=== PATIENT | female | born 1960 | race Caucasian/White ===

== ENCOUNTER 2020-10-09 09:00 | Outpatient (RCR) | payer OTHER, SELFPAY | END 2021-04-16 13:19 | disposition home or self-care (01) | LOC: HO.PT 09:00 | PROVIDERS: PCP Internal Medicine; Visit Provider Podiatrist | DX: M72.2 Plantar fascial fibromatosis (principal) | CPT/HCPCS: 97035; 97110; 97140; 97161; 97535 ==

== ENCOUNTER 2020-10-17 07:18 | Outpatient (REF) | payer OTHER, SELFPAY ==
--- NOTE | ~2020-10-17 | MR_ITS ---
EXAMINATION: MR ANKLE WITHOUT CONTRAST, LEFT CLINICAL INFORMATION: Stress fracture left calcaneus. Patient reports plantar fasciitis. COMPARISON: None TECHNIQUE: MRI of the left ankle was performed without contrast. FINDINGS: PLANTAR FASCIA: There is mild heterogeneity of the proximal plantar fascia over approximately 2 cm. There is mild edema in the surrounding soft tissues as well as at the calcaneal attachment. The findings are most compatible with plantar fasciitis and/or small areas of interstitial intrasubstance partial tearing but no measurable defect or plantar fascial retraction. See sagittal image 10 series 8. SUBCUTANEOUS SOFT TISSUES: Otherwise normal. MUSCLES AND TENDONS: Normal. NEUROVASCULAR STRUCTURES: Normal. LIGAMENTS: Normal. ARTICULAR CARTILAGE/MARROW: Articular cartilage normal. Mild edema in the calcaneal tuberosity at the plantar fascia attachment, as above. MR/MR ankle LT wo con IMPRESSION: Findings most compatible with mild plantar fasciitis/partial tearing of the plantar fascia with reactive edema in the surrounding soft tissues and bone. I do not see findings that would indicate stress fracture.
== END 2020-10-17 07:19 | disposition home or self-care (01) ==
LOC: HO.MRI 07:18
PROVIDERS: Visit Provider Podiatrist
DX: M84.375A Stress fracture, left foot, initial encounter for fracture (principal)
CPT/HCPCS: 73721

== ENCOUNTER 2021-02-26 08:02 | Outpatient (REF) | payer OTHER, SELFPAY ==
--- NOTE | ~2021-02-26 | XR_ITS ---
EXAMINATION: XR SHOULDER, RIGHT CLINICAL INFORMATION: Right shoulder pain. COMPARISON: None. TECHNIQUE: 3 views of the right shoulder. FINDINGS: There is no evidence of acute fracture or dislocation of the right shoulder. There is mild spurring about the inferior glenohumeral joint. No calcific tendinitis identified. No widening of the coracoclavicular space is seen. There is some mild superior subluxation of the humeral head which may be indicative of rotator cuff injury. XR/XR shoulder RT min 2V IMPRESSION: No evidence of acute fracture or calcific tendinitis. Mild degenerative change as described.
== END 2021-02-26 08:03 | disposition home or self-care (01) ==
LOC: HO.HOSX 08:02
PROVIDERS: Visit Provider Orthopaedic Surgery
DX: M25.511 Pain in right shoulder (principal); M75.41 Impingement syndrome of right shoulder
CPT/HCPCS: 73030

== ENCOUNTER 2021-04-16 09:00 | Outpatient (RCR) | payer OTHER, SELFPAY ==
--- NOTE | 2021-03-11 10:13 | MHC.PT.EP ---
[facility] [place] Office [place] Office [place] Office [address] Horace Dawn [address] [phone] F: [phone] F: [phone] F: [phone] F: [phone] Physical Therapy Plan of Care Date of Evaluation: Date of Surgery: Diagnosis: ROTATOR CUFF TENDONITIS Assessment: 60 YO FEMALE REF TO PT FOR Rt SHOULDER IMPINGEMENT- SHE IS RIGHT HAND DOMINANT- OBJECTIVE FINDINGS: LIMITED Rt SH AROM, DECR POSTURE, TIGHT ANT SH/ PECT, (+) IMPINGEMENT SIGN Rt, AND (+) PAIN Rt UPPER TRAP/ SCAP, ANT GH. FUNCTIONALLY, Pt IS GUARDED W REACHING POSTERIORLY OR OVERHEAD, SLEEPING IS DIFFICULT, LIMITED W DRIVING, AND LIFTING OBJECTS. SHE HAS BEEN AVOIDING HER EXERCISE ROUTINE. Pt WOULD BENEFIT FROM PT TO ADDRESS PAIN, IMPROVE POSTURE, EASE TISSUE TENSION, AND DEV A PROGR HEP TO JUNI. Frequency and Duration: The patient will be seen 2 x WK x 5 WKS Short Term Goals: Pt'S Rt SH PAIN DECR TO 2-3/10 W REG ADLs IN 2 WKS Pt DEMON INDEP SELF CORRECT POSTURE/ SIMUL BODY MECH IN 2 WKS Pt DEMON INCR AROM Rt SH IN 2 WKS Half-Way Goals: Pt INDEP W HEP AND SELF-SX MGMT TECHN IN 5 WKS Pt'S SPADI SCORE IMPROVED 10 POINTS (92/130 AT EVAL) IN 5 WKS Treatment Plan: Modalities to reduce pain, spasms and effusion. Manual therapy to restore motion and function. Therapeutic exercise to improve strength and flexibility. Neuromuscular re-education for posture and balance. Therapeutic activities to return to functional activities of daily living. Electronically signed by: Liliana Sandoval,PT Please sign and return to therapist. Thank you for your referral.
--- NOTE | 2021-05-31 07:17 | MHC.PT.DC ---
[facility] [place] Office [place] Office [place] Office [address] Horace Dawn [address] [phone] F: [phone] F: [phone] F: [phone] F: [phone] Physical Therapy Discharge Report Diagnosis: ROTATOR CUFF TENDONITIS Date of Surgery: Date of Evaluation: 03/11/21 Date of Discharge: 05/31/21 Treatments to Date: 10 Cancellations to Date: 2 No Shows to Date: Discharge Status: Improved Function Independent with HEP Recommend MD Follow-up Discharge Summary: Pt RECEIVED A FULL TRIAL OF IONTO- DUE TO PERSISTENT SXS, WE DISCUSSED PUTTING PT ON HOLD AND TO HAVE HER F/U W MD; SHE APPEARS TO HAVE RESIDUAL IMPINGEMENT/ POSTURAL SYNDROME INFLUENCING HER Rt SH W/O CONSISTENT RELIEF OF SXS AFTER SOFT TISSUE MOBILIZATION/ IASTM, THERAPEUTIC TAPING, POSTURAL ED AND EXER, POSTERIOR RC/ SCAP MM STABILIZATION AND STRENGTHENING. 60 YO FEMALE REF TO PT FOR Rt SHOULDER IMPINGEMENT- SHE IS RIGHT HAND DOMINANT- OBJECTIVE FINDINGS: LIMITED Rt SH AROM, DECR POSTURE, TIGHT ANT SH/ PECT, (+) IMPINGEMENT SIGN Rt, AND (+) PAIN Rt UPPER TRAP/ SCAP, ANT GH. FUNCTIONALLY, Pt IS GUARDED W REACHING POSTERIORLY OR OVERHEAD, SLEEPING IS DIFFICULT, LIMITED W DRIVING, AND LIFTING OBJECTS. SHE HAS BEEN AVOIDING HER EXERCISE ROUTINE. Pt WOULD BENEFIT FROM PT TO ADDRESS PAIN, IMPROVE POSTURE, EASE TISSUE TENSION, AND DEV A PROGR HEP TO JUNI. Electronically signed by: Liliana Sandoval,PT Please sign and return to therapist. Thank you for your referral.
== END 2021-05-31 07:19 | disposition home or self-care (01) ==
LOC: HO.PT 09:00
PROVIDERS: Visit Provider Orthopaedic Surgery
DX: M75.41 Impingement syndrome of right shoulder (principal)
CPT/HCPCS: 97033; 97110; 97140; 97161; 97530

== ENCOUNTER 2021-05-23 07:21 | Outpatient (REF) | payer OTHER, SELFPAY ==
--- NOTE | ~2021-05-23 | MR_ITS ---
EXAMINATION: MR SHOULDER WITHOUT CONTRAST, RIGHT CLINICAL INFORMATION: Right shoulder pain. Decreased range of motion. Pain with movement. Impingement syndrome. COMPARISON: Right shoulder radiographs dated 02/26/2021. TECHNIQUE: MRI of the shoulder without contrast was performed on a high-field scanner. FINDINGS: ROTATOR CUFF: Supraspinatus tendinosis with anterior bursal surface partial tearing measuring 0.4 cm in AP dimension. Mild subscapularis tendinosis. No muscle atrophy or fatty infiltration. BICEPS: Normal. CORACOACROMIAL ARCH: The undersurface of the acromion is curved with no subacromial spur. Mild acromioclavicular osteoarthritis. Mild fluid within the subacromial-subdeltoid bursa, consistent with minimal bursitis. LABRUM/CAPSULE: No displaced labral tear. Intact joint capsule. Attenuation of the coracoclavicular ligament with adjacent edema, consistent with a grade 2 sprain/partial tear. GLENOHUMERAL JOINT/MARROW: Humeral head articular cartilage signal heterogeneity. Inferior glenoid articular cartilage signal heterogeneity with focal full-thickness fissuring. Tiny marginal osteophytes. [id number] joint effusion. MR/MR shoulder RT wo con IMPRESSION: 1. Supraspinatus tendinosis with anterior bursal surface partial tearing measuring 0.4 cm. Mild subscapularis tendinosis. 2. Mild acromioclavicular osteoarthritis. 3. Minimal subacromial-subdeltoid bursitis. 4. Acute grade 2 sprain/partial tear of the coracoclavicular ligament. 5. Mild glenohumeral osteoarthritis. [id number] joint effusion.
== END 2021-05-23 07:22 | disposition home or self-care (01) ==
LOC: HO.MRI 07:21
PROVIDERS: Visit Provider Physician Assistant
DX: M75.41 Impingement syndrome of right shoulder (principal)
CPT/HCPCS: 73221

== ENCOUNTER → 2021-05-27 09:17 | Outpatient (BNVA) | payer OTHER, SELFPAY | PROVIDERS: Visit Provider Physician Assistant | DX: M75.41 Impingement syndrome of right shoulder (principal) | CPT/HCPCS: 20610; J1040 ==

== ENCOUNTER → 2021-07-01 10:22 | Outpatient (BNVA) | payer OTHER, SELFPAY | PROVIDERS: PCP Internal Medicine; Visit Provider Physician Assistant ==

== ENCOUNTER 2021-08-20 10:52 | Outpatient (REF) | payer OTHER, SELFPAY ==
[2021-08-20 13:19] LABS: Binax Internal Control QC Valid; Binax Now Covid-19 Ag Positive (Negative)
== END 2021-08-20 10:53 | disposition home or self-care (01) ==
LOC: HO.LAB 10:52
PROVIDERS: Visit Provider Internal Medicine
DX: Z20.822 Contact with and (suspected) exposure to COVID-19 (principal)
CPT/HCPCS: C9803

== ENCOUNTER 2021-12-25 15:00 | Outpatient (RCR) | payer OTHER, SELFPAY ==
[2021-07-23 07:56] VITALS: BP 121/82
--- NOTE | 2021-07-23 09:58 | MHC.PT.EP ---
[facility] [place] Office [place] Office [place] Office [address] Horace Dawn [address] [phone] F: [phone] F: [phone] F: [phone] F: [phone] Physical Therapy Plan of Care Date of Evaluation: Date of Surgery: Diagnosis: Rt SHOULDER ADHESIVE CAPSULITIS Assessment: 60 YO FEMALE REF TO PT W Rt SH ADHESIVE CAPSULITIS- SHE HAD AN INJECTION AND PRIOR PT IN FEBRUARY-MAR 2021 W SOME PROGRESS. 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 OBJECTIVE FINDINGS INCLUDE LIMITED ROM Rt SH AND SCAP REGION, DECR POSTURAL AWARENESS, DECR STRENGTH IN Rt SH GIRDLE/ UE, AND PAIN IN Rt SH GIRDLE/ PROX HUMERUS. I WAS UNABLE TO PERFORM SPECIAL TEST ON Rt SH DUE TO SELF-GUARDING, PAIN, AND TISSUE TENSION- WILL CLOSELY MONITOR WE PROGRESS. FUNCTIONAL LIMITATIONS INCLUDE DIFFIC SLEEPING, DOING HER HAIR, LIFTING HEAVY ITEMS; BRUSHING HER TEETH, AND DRIVING- SHE ALSO IS ON FML DUE TO HER Rt SH PAIN AND SENSITIVITY. CURRENTLY, HER LIGHT TOUCH SENSATION IS EQUAL AND INTACT. Pt WOULD BENEIFT FROM PT TO ADDRESS THE ABOVE FINDINGS AND GUIDE HER THROUGH THE PHASES OF ADHESIVE CAPSULITIS TO ASSIST HER IN RTW AND REG ADLs. HER SPADI SCORE AT [facility] WAS 118/130. Frequency and Duration: The patient will be seen 2 x WK x 5 WKS Short Term Goals: Pt'S Rt SH PAIN DECR TO 4-5/10 W BASIC ADLs IN 2 WKS Pt DEMON INDEP SELF POSTURAL CORRECTION IN 2 WKS Pt DEMON IMPROVED ROM Rt SH FLEX 120*, ABD 90*, ER 60*, AND IR TO Rt L4/5 LEVEL IN 3 WKS Manager Epic Goals: Pt INDEP W HEP AND PROGR WELL SELF- SX MGMT TECHN IN 5 WKS Pt RESUME REG ADLs/ RTW EVIDENT W IMPROVED SPADI SCORE BY AT LEAST 20 POINTS IN 5 WKS Pt DEMON Rt SH FLEX 160*, IR POST TO T11 LEVEL, ER TO C4/5, ABD 130*-> STRENGTH IMPROVED BY 1/2 TO 1 GRADE HER PIN DECR Treatment Plan: Modalities to reduce pain, spasms and effusion. Manual therapy to restore motion and function. Therapeutic exercise to improve strength and flexibility. Neuromuscular re-education for posture and balance. Therapeutic activities to return to functional activities of daily living. Electronically signed by: Liliana SandovalPT Please sign and return to therapist. Thank you for your referral.
== END 2021-12-27 10:40 | disposition home or self-care (01) ==
LOC: HO.PT 15:00
PROVIDERS: PCP Internal Medicine; Visit Provider Physician Assistant
DX: M75.01 Adhesive capsulitis of right shoulder (principal)
CPT/HCPCS: 97014; 97110; 97140; 97162; 97530

== ENCOUNTER 2022-07-31 10:36 | Outpatient (REF) | payer OTHER, SELFPAY ==
--- NOTE | ~2022-07-31 | XR_ITS ---
EXAMINATION: XR SINUSES CLINICAL INFORMATION: Sinusitis COMPARISON: None TECHNIQUE: 4 views of the sinuses were obtained. FINDINGS: There is no significant mucosal thickening or polypoid mass and no visible air-fluid levels. No sinus expansion or bony thickening or sclerosis. Incidental congenital hypoplastic right frontal sinus. Nasopharynx unremarkable on lateral view. XR/XR sinus min 3V IMPRESSION: Unremarkable examination.
== END 2022-07-31 10:37 | disposition home or self-care (01) ==
LOC: HO.XRAY 10:36
PROVIDERS: PCP Internal Medicine; Visit Provider Otolaryngology
DX: J32.9 Chronic sinusitis, unspecified (principal)
CPT/HCPCS: 70220

== ENCOUNTER 2022-08-08 14:24 | Outpatient (RCR) | payer OTHER, SELFPAY ==
[2022-08-08 15:11] VITALS: BP 135/96; PULSE 112
--- NOTE | 2022-08-08 16:22 | MHC.PT.EP ---
[facility] [place] Office [place] Office [place] Office [address] Horace Dawn [address] [phone] F: [phone] F: [phone] F: [phone] F: [phone] Physical Therapy Plan of Care Date of Evaluation: Date of Surgery: NA Diagnosis: Vertigo Assessment: Eloisa is a 61 year old female who is referred to PT for vertigo . She reports of having symptoms of dizziness since the onset of her sinus infection. Her initial symptoms of dizziness was room spinning and this resolved and currently has been experiencing lightheadedness . She is also been having increased HR for a month and that is being monitored currently. On PT examination she was negative for nystagmus and vertigo but presented with symptoms suggestive of vestibular hypofunction. In addition to this her baseline HR was going up from 100 to 130 during testing and she reported of feeling different. She is independent with all ADLs. Eloisa would benefit from skilled PT to address vestibular hypofunction however she is limited in participation due to elevated HR, symptoms of palpitation and feeling of SOB and different . She was advised to return to therapy for symptoms of vestibular hypofunction once she is medically cleared and cause of elevated HR and SOB is identified. Pt's chart will be kept open for a month for assessment of BPPV if those symptoms return. Plan of care will be updated accordingly during that re-assessment. Frequency and Duration: The patient will be seen Short Term Goals: Alf Goals: Treatment Plan: Modalities to reduce pain, spasms and effusion. Manual therapy to restore motion and function. Therapeutic exercise to improve strength and flexibility. Neuromuscular re-education for posture and balance. Therapeutic activities to return to functional activities of daily living. Electronically signed by: Please sign and return to therapist. Thank you for your referral.
--- NOTE | 2022-09-09 15:41 | MHC.PT.DC ---
[facility] [place] Office [place] Office [place] Office [address] Horace Dawn 140 [facility] [phone] F: [phone] F: [phone] F: [phone] F: [phone] Physical Therapy Discharge Report Diagnosis: Vertigo Date of Surgery: NA Date of Evaluation: 08/08/22 Date of Discharge: 09/09/22 Treatments to Date: 1 Cancellations to Date: 0 No Shows to Date: Discharge Status: Discharge Summary: Eloisa has not returned to PT with vestibular symptoms in over a month. She is therefore being d/c from PT. Electronically signed by: Janessa Valdez PT DPT Please sign and return to therapist. Thank you for your referral.
== END 2022-09-09 15:41 | disposition home or self-care (01) ==
LOC: HO.PT 14:24
PROVIDERS: PCP Internal Medicine; Visit Provider Otolaryngology
DX: R42 Dizziness and giddiness (principal)
CPT/HCPCS: 97112; 97161

== ENCOUNTER → 2022-11-10 14:52 | Outpatient (REF) | payer OTHER, SELFPAY ==
--- NOTE | 2022-11-10 14:59 | CA_ITS ---
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 The calculated ejection fraction is 57% by biplane method. - No obvious valvular pathology seen on this study. Findings Left Ventricle Normal left ventricular cavity size. There is normal left ventricular wall thickness. The left ventricular systolic function is normal. The calculated ejection fraction is 57% by biplane method. There is no evidence of regional wall motion abnormalities. Diastolic function is normal for age. LV peak GLS -18.9%. Right Ventricle Normal right ventricular cavity size and systolic function. Atria Both atria are normal in size. Aortic Valve There is a normal trileaflet aortic valve. There is no aortic valve stenosis. There is no aortic valve regurgitation. Mitral Valve The mitral valve appears normal. There is no mitral valve regurgitation. There is no mitral valve stenosis. Pulmonic Valve The pulmonic valve is likely normal. Tricuspid Valve There is mild tricuspid valve regurgitation. There is no evidence of pulmonary hypertension. Great Vessels The asc aorta is normal in size. Venous The inferior vena cava is normal in size and collapses greater than 50% with inspiration. Pericardium/Pleural There is no evidence of pericardial effusion. Prior Study Comparison No prior study available for comparison. Recommendations, Care & Conclusions No obvious valvular pathology seen on this study. Measurements 2D Linear Measurements IVSd: 0.86 0.6-0.9/0.6-1.0 cm LVIDd: 4.58 3.9-5.3/4.2-5.9 cm LVIDd Index: 2.53 2.4-3.2/2.2-3.1 cm/m2 LVIDs: 3.34 2.0-3.6 cm LVPWd: 0.78 0.7-1.1 cm LA Diam: 3.10 2.7-3.8/3.0-4.0 cm LAIDs Index: 1.71 1.5-2.3 cm/m2 LV Mass: 150.72 67-162/88-224 g LV Mass Index: 83.27 43-95/49-115 g/m2 LVOT Diam: 1.90 3.0+(-)1.3 cm 2D Systolic Function EF 4C: 55.90 >55% EF 2C: 58.80 >55% EF BiP: 56.60 >55% Mitral Valve MV Pk E: 0.61 MV PK A: 0.83 MV Decel Time: 214.00 E/A: 0.70 E'Lateral: 10.30 E'Medial: 8.92 E/E' Med: 6.90 E/E' Lat: 5.90 PHT: 63.00 MVA PHT: 3.49 Decel Boyle: 2.86 Aortic Valve AoV Pk Jeremi: 1.35 AoV Mn Jeremi: 0.99 AoV VTI: 0.26 AoV Pk Grad: 7.00 Aov Mn Grad: 4.00 NAVEEN Cont.VTI: 2.22 LVOT LVOT Pk Jeremi: 0.99 LVOT Mn Jeremi: 0.68 LVOT VTI: 0.20 LVOT Pk Grad: 4.00 LVOT Mn Grad: 2.00 LVOT Diam: 1.90 LVOT Area: 2.84 Diastolic Function MV Pk E: 0.61 MV Pk A: 0.83 E/A: 0.70 E'Medial: 8.92 E/E' Med: 6.90 E' Laterial: 10.30 E/E' Lat: 5.90 Right Ventricle TAPSE (mm): 26.00 TVS' Jeremi: 14.80 Tricuspid Valve TR Pk Jeremi: 2.17 TR Pk Grad: 19.00 RA Press: 3.00 RVSP: 22.00 Great Vessels Aorta Sinus of Valsalva: 3.16 2.0-3.5 cm Ao Asc: 3.00 2.1-3.4 cm Ao Arch: 2.90 Updated in Other Vendor System with Status of Final Brian Giron MD electronically signed on 11/10/2022 4:26:14 PM with status of Final
== END ==
LOC: HO.CARD 14:52
PROVIDERS: Visit Provider Internal Medicine
DX: R00.0 Tachycardia, unspecified (principal)
CPT/HCPCS: 93306; 93356

== ENCOUNTER → 2022-11-13 10:08 | Outpatient (BNVA) | payer OTHER, SELFPAY | PROVIDERS: PCP Internal Medicine; Referring Provider Internal Medicine; Visit Provider Internal Medicine Cardiovascular Disease | DX: R07.89 Other chest pain (principal); R00.0 Tachycardia, unspecified | CPT/HCPCS: 93005 ==

== ENCOUNTER → 2022-12-01 10:41 | Outpatient (REF) | payer OTHER, SELFPAY ==
--- NOTE | 2022-12-01 10:45 | CA_ITS ---
Acquisition Time: 2022-12-01 11:28:41 Total Exercise Time: 00:06:00 Test Indications: CHEST PAIN Medications: Protocol: VAUGHN Max HR: 173 BPM 107% of Pred: 161 BPM Max BP: 128/080 mmHG Max Work Load: 7.0 METS Exercise stress test with exercise 6 min of Vaughn protocol, achieving 93% MPHR, with a vague ache in mid chest that was mild at baseline, then up to 5/10 with exercise and resolved in recovery, with isolated PVCs, with limited BP assessment with exercise, without EKG changes meeting criteria for ischema. Echo images obtained by Phrazit at rest and immediately post peak exercise. Definity contast used. Test reviewed with Dr Valdovinos. Referred By: Sarath Rios Overread By: SHAAN THORNTON
== END ==
LOC: HO.CARD 10:41
PROVIDERS: Visit Provider Internal Medicine Cardiovascular Disease
DX: R07.89 Other chest pain (principal)
CPT/HCPCS: 93350; Q9957

== ENCOUNTER 2022-12-05 10:25 | Outpatient (REF) | payer OTHER, SELFPAY ==
[2022-12-05 11:14] LABS: Appearance Urine Clear; Color Urine Yellow; Glucose Urine UA Negative (Negative); Leukocyte Esterase Urine Negative (Negative); Nitrite Urine Negative (Negative); PH 5.5 (5.0-9.0); Specific Gravity - Urine 1.015 (1.005-1.025); UMIC TRIGGER UACC YES; Urine Blood Small (1+) (Negative); Urine Ketones Negative (Negative); Urine Protein Negative (Neg-Trace)
[2022-12-05 11:25] LABS: Bacteria Urine None Seen (None Seen); Hyaline Casts Urine 0-2 /LPF (0-2); Squamous Epithelial Cell Urine 0-2 /HPF (0-2); WBC Urine 0-5 /HPF (0-5)
== END 2022-12-05 10:26 | disposition home or self-care (01) ==
LOC: HO.LAB 10:25
PROVIDERS: PCP Internal Medicine; Visit Provider Internal Medicine
DX: M54.9 Dorsalgia, unspecified (principal); R82.90 Unspecified abnormal findings in urine
CPT/HCPCS: 81001

== ENCOUNTER 2022-12-09 10:08 | Outpatient (REF) | payer OTHER, SELFPAY ==
[2022-12-09 11:14] LABS: Anion Gap 12 (12-20); Blood Urea Nitrogen 13 mg/dL (9-16); Carbon Dioxide 24 mmol/L (22-29); Chloride 108 mmol/L (96-108); Estimated Glomerular Filt Rate > 60; Glucose Random 93 mg/dL (60-115); Potassium 4.4 mmol/L (3.3-5.1); Sodium 140 mmol/L (135-145)
[2022-12-09 11:41] LABS: Appearance Urine Clear; Color Urine Dark Yellow; Glucose Urine UA Negative (Negative); Leukocyte Esterase Urine Trace (Negative); Nitrite Urine Negative (Negative); Specific Gravity - Urine 1.015 (1.005-1.025); UMIC TRIGGER UACC YES; Urine Blood Negative (Negative); Urine Ketones Trace mg/dL (Negative); Urine Protein Trace mg/dL (Neg-Trace)
[2022-12-09 11:53] LABS: Bacteria Urine None Seen (None Seen); WBC Urine 0-5 /HPF (0-5)
== END 2022-12-09 10:09 | disposition home or self-care (01) ==
LOC: HO.LAB 10:08
PROVIDERS: PCP Internal Medicine; Visit Provider Internal Medicine
DX: M54.9 Dorsalgia, unspecified (principal); R39.9 Unspecified symptoms and signs involving the genitourinary system
CPT/HCPCS: 36415; 80048; 81001

== ENCOUNTER 2022-12-15 12:04 | Outpatient (REF) | payer OTHER, SELFPAY | END 2022-12-15 12:05 | disposition home or self-care (01) | LOC: HO.LNP 12:04 | PROVIDERS: Visit Provider Nurse Practitioner Family | DX: R10.9 Unspecified abdominal pain (principal) | CPT/HCPCS: 87086 ==

== ENCOUNTER 2023-01-16 14:35 | Outpatient (REF) | payer OTHER, SELFPAY ==
--- NOTE | ~2023-01-16 | US_ITS ---
EXAMINATION: US RETROPERITONEAL COMPLETE (RENAL) CLINICAL INFORMATION: Personal history of urinary calculi. COMPARISON: Renal ultrasound 02/18/2008. TECHNIQUE: Real-time imaging of the kidneys and bladder. FINDINGS: RIGHT KIDNEY: 10.2 x 3.2 x 6.2 cm (SAG x AP x TRV). The kidney is normal in size, contour, and echogenicity. Renal cortical thickness is normal. No calculi or focal parenchymal lesions. There is minimal fullness in the renal pelvis but no hydronephrosis. LEFT KIDNEY: 10.7 x 4.7 x 4.2 cm (SAG x AP x TRV). The kidney is normal in size, contour, and echogenicity. Renal cortical thickness is normal. No calculi or focal parenchymal lesions. No hydronephrosis. BLADDER: Well distended and normal. Bilateral ureteral jets are demonstrated. Prevoid bladder volume is 501 mL. Postvoid bladder volume is 35 mL. US/US retroperitoneal comp IMPRESSION: No significant abnormality is seen.
== END 2023-01-16 14:36 | disposition home or self-care (01) ==
LOC: HO.US 14:35
PROVIDERS: PCP Internal Medicine; Visit Provider Internal Medicine
DX: N30.10 Interstitial cystitis (chronic) without hematuria (principal); Z87.442 Personal history of urinary calculi
CPT/HCPCS: 76770

== ENCOUNTER 2023-02-19 14:34 | Outpatient (AMB) | payer OTHER, SELFPAY ==
[2023-02-19 15:09] VITALS: BP 140/81; PULSE 112; BMI 23.5
--- NOTE | 2023-02-19 15:09 | MHC.OFFVIS ---
Intake Vital Signs 02/19/23 15:09 02/19/23 15:20 02/19/23 15:22 Height 5 ft 8 in Weight 154 lb 5.177 oz BMI 23.5 BP 140/81 H 139/85 159/78 H Blood Pressure Location Lt brachial Lt brachial Position Supine Sitting Pulse 112 H 114 H 123 H Intake Visit Reasons: 3 mth f/up tilt/ stress echo Intake Note: 3 month follow-up after tilt table and stress echo had reaction to the dye still having low back pain [employer] Installer Required: No Allergies penicillin V Allergy (Unknown, Verified 01/13/23 16:25) Unknown Penicillins [PCN] Allergy (Unknown, Verified 01/13/23 16:25) UNKNOWN Clindamycin Palmitate HCl Allergy (Mild, Uncoded 01/13/23 16:25) rash Medication List - Last Reconciled 02/19/23 by Sarath Rios MD acetaminophen (Tylenol) 325 mg PO QID PRN cyclobenzaprine 5 mg PO TID PRN ibuprofen 200 mg PO Q6H PRN norethindrone (contraceptive) mg PO DAILY HPI HPI Comments History of Present Illness Details Patient had back pain related to definity. This is a known side effect of definity. However she says she has continues discomfort and weakness in her lower back. This is extremely on physiologic as the micro bubbles are very transient in nature and do not last in the system. She also continues to have significant fatigue. She also has right-sided parasternal discomfort which is almost continues. She underwent stress echocardiogram which is within normal limits. Echocardiogram shows normal structure of the heart. Her head-up tilt-table test was also negative for postural orthostatic tachycardia syndrome. She however thinks that her symptoms of palpitations and lightheadedness have improved. She still very upset about her symptoms. 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 Cognitive needs: No Hearing needs: No Vision needs: No Review of Systems Const Denies chills, Denies fatigue, Denies fever(s), Denies frequent falls, Denies weakness, Denies weight gain and Denies weight loss ENT Denies dizziness Card Denies chest pain, Denies leg edema, Denies lightheadedness, Denies palpitations, Denies dyspnea, Denies dyspnea on exertion, Denies orthopnea and Denies other (loss of consciousness) Resp Denies cough, Denies dyspnea and Denies dyspnea on exertion GI Denies hematochezia and Denies change in stool character Musc Denies abnormal gait, Denies muscle weakness, Denies numbness, Denies radiating pain into limb and Denies tingling Neuro Denies Abnormal speech present, Denies abnormal gait, Denies dizziness, Denies frequent falls, Denies numbness, Denies tingling and Denies weakness Endo Denies fatigue and Denies palpitations Physical Exam Vital Signs: Last Vital Signs Pulse 123 H 02/19/23 15:22 BP 159/78 H 02/19/23 15:22 BMI result Body Mass Index 23.5 Const General: cooperative, comfortable, no acute distress, alert, awake, Physically active, anxious and well groomed Nutritional Appearance: thin Orientation/consciousness: patient oriented x3 Limitations: no limitations Neck Neck: Yes trachea midline, Yes supple and Yes no JVD Resp Effort & Inspection: normal respiratory effort Auscultation: clear to auscultation bilaterally Cardio Jugular venous distension: no JVD Palpation: normal PMI Rate: tachycardic Rhythm: regular rhythm Heart sounds: S1 normal heart sound present, S2 normal heart sound present, no click, no gallops, no murmurs and no rubs GI Auscultation: normal bowel sounds Skin General skin exam: no rashes or lesions noted Neuro General: patient oriented x3 and no focal motor deficits Speech: No Abnormal speech present Extrem General: Yes no clubbing, cyanosis or edema Psych Appearance: grossly normal Affect: Anxious affect present Assessment & Plan Assessment & Plan (1) Chest discomfort: Code(s): R07.89 - Other chest pain Plan: Patient's chest discomfort does not appear to be cardiac in origin. Stress echocardiogram was within normal limits. Echocardiogram shows normal LV systolic function. Her head-up tilt-table test is also within normal limits. Noted today to be anxious and has a lot of different complaints. Her blood pressure is noted to be elevated today. Continue monitor that at home. May benefit from treatment if remains elevated and could consider treatment with nonselective beta-gabriel therapy such as Inderal. Stress mitigation strategies need to be pursued. Patient is convinced that there is something wrong with her and this might be increasing her anxiety reaction. (2) Sinus tachycardia: Code(s): R00.0 - Tachycardia, unspecified Plan: Sinus tachycardia without any clear evidence of postural orthostatic tachycardia syndrome. Most likely driven by anxiety. Consider stress mitigation strategies. Continue treatment for the same. If remains significantly symptomatic and has tachycardia can consider therapy with nonselective beta-blockers. Will follow up in the clinic if need be. Coding Level of Care Code Est Pt Level 3 (81440) Diagnoses Chest discomfort R07.89 Sinus tachycardia R00.0
[2023-02-19 15:20] VITALS: BP 139/85; PULSE 114
[2023-02-19 15:22] VITALS: BP 159/78; PULSE 123
== END 2023-02-19 16:22 | disposition home or self-care (01) ==
PROVIDERS: Visit Provider Internal Medicine Cardiovascular Disease
DX: R07.89 Other chest pain (principal); R00.0 Tachycardia, unspecified
CPT/HCPCS: 99213

== ENCOUNTER → 2023-02-19 14:34 | Outpatient (BNVA) | payer OTHER, SELFPAY | PROVIDERS: Visit Provider Internal Medicine Cardiovascular Disease ==

== ENCOUNTER 2023-03-09 11:19 | Outpatient (AMB) | payer OTHER, SELFPAY ==
[2023-03-09 11:21] VITALS: BP 136/78; PULSE 131; O2SAT 100; BMI 22.8
--- NOTE | 2023-03-09 11:21 | MHC.PC.OV ---
Vital Signs 03/09/23 11:21 Height 5 ft 8 in Weight 150 lb BMI 22.8 BP 136/78 Blood Pressure Location Lt brachial Position Sitting Pulse 131 H Pulse Source Pulse Oximeter Temp Source Skin Pulse Oximetry (%) 100 Oxygen Delivery Method Room Air Intake Visit Reasons: pe Intake Note: Patient is here today for a physical. Blow Up Operator Required: No Allergies penicillin V Allergy (Unknown, Verified 03/09/23 11:21) Unknown Penicillins [PCN] Allergy (Unknown, Verified 03/09/23 11:21) UNKNOWN Iodinated Contrast Media Adverse Reaction (Intermediate, Verified 03/09/23 12:11) Back Pain Clindamycin Palmitate HCl Allergy (Mild, Uncoded 03/09/23 11:21) rash Medication List - Last Reconciled 03/09/23 by Kike Peters MD acetaminophen (Tylenol) 325 mg PO QID PRN cyclobenzaprine 5 mg PO TID PRN ibuprofen 200 mg PO Q6H PRN norethindrone (contraceptive) mg PO DAILY pentosan polysulfate sodium (Elmiron) 100 mg PO .QD Tobacco use date assessed: 03/09/23 Dental Screening Dental Screen Date: 03/09/23 Did you have a dental visit in the last 12 months?: Yes Did you have a dental problem in the last 6 months where you did not have access to dental care?: No Was dental information given to patient?: Patient has dentist HPI pe HPI Details 62-year-old female with a history of renal calculi coming in for physical exam last seen in January 2023 had sinus tachycardia but cardiac workup was negative patient did see cardiology stress echo within normal limits tilt-table test within normal blood pressure concern for tachycardia advise stress medications strategies. ultrasound of the bladder is negative as well as referral to urology done patient is up-to-date with mammogram in due next month. patient also complains of back pain after the stress test nuclear. concern on interstitial cystitis . Patient brings me a CT of the pelvis and abdomen- having L5 spondylolysis on the Left- ? low back pain, dizzy , occ , fatigue,racing of the heart [facility] Medical History (Updated 03/09/23 @ 12:28 by Kike Peters MD) Adhesive capsulitis of right shoulder Back pain Chest discomfort Fibromyalgia History of renal calculi Myofascial pain on right side Plantar fasciitis Right flank pain Rotator cuff impingement syndrome of right shoulder Screening for colon cancer Sinus congestion SOB (shortness of breath) Upper respiratory tract infection Family History Mother CVA (cerebral vascular accident) Maternal Aunt Breast cancer Maternal Uncle Lung cancer Social History Alcohol intake: never Patient Tobacco Use Status: Never used Tobacco Current occupational status: employed 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 1. Little interest or pleasure in doing things: not at all 2. Feeling down, depressed, or hopeless: not at all 3. Trouble falling or staying asleep, or sleeping too much: not at all 4. Feeling tired or having little energy: not at all 5. Poor appetite or overeating: not at all 6. Feeling bad about yourself - or that you are a failure or have let yourself or your family down: not at all 7. Trouble concentrating on things, such as reading the newspaper or watching television: not at all 8. Moving or speaking so slowly that other people could have noticed. Or the opposite - being so fidgety or restless that you have been moving around a lot more than usual: not at all 9. Thoughts that you would be better off or of hurting yourself in some way: not at all Total score: 0 Depression Screening Interpretation: Negative Source: Developed by Drs. Yaya Rojas, Karie Ortega, Willi Pedersen and colleagues, with an educational cindy from [employer]. Thrive Questionnaire Date Thrive assessed: 12/15/22 AUDIT C Alcohol Use Questionnaire (AUDIT-C) 1. How often do you have a drink containing alcohol?: Never 2. How many drinks containing alcohol do you have on a typical day when you are drinking?: 1 or 2 3. How often do you have six or more drinks on one occasion?: Never Total Score: 0 PADMINI-7 AMB Questionnaire PADMINI-7 Date PADMINI - 7 assessed: 03/09/23 Feeling nervous, anxious, or on edge: 0 = Not at all Not being able to stop or control worryin = Not at all Worrying too much about different things: 0 = Not at all Trouble relaxin = Not at all Being so restless that it is hard to sit still: 0 = Not at all Becoming easily annoyed or irritable: 0 = Not at all Feeling afraid as if something awful might happen: 0 = Not at all Total PADMINI-7 score (0-4 normal; 5-9 mild; 10-14 moderate; 15-21 severe): 0 Source: Developed by Drs. Yaya Rojas, Karie Ortega, Willi Pedersen and colleagues, with an educational cindy from [employer]. Review of Systems Const Denies poor appetite and Denies weakness Eyes Denies no additional complaints ENT Reports Normal hearing present, Denies dizziness, Denies nasal congestion, Denies tinnitus and Denies sore throat Card Denies chest pain, Denies syncope, Denies rapid heart rate and Denies dyspnea Resp Denies cough and Denies dyspnea GI Denies change in stool character, Reports constipation, Denies diarrhea, Denies nausea and Denies vomiting Denies urinary frequency, Denies difficulty voiding and Denies dysuria Neuro Reports Normal hearing present, Denies confusion, Denies dizziness, Denies syncope and Denies weakness Psych Denies confusion Physical exam (Primary Care) Vital Signs: Last Vital Signs Pulse 131 H 03/09/23 11:21 BP 136/78 03/09/23 11:21 Pulse Ox 100 03/09/23 11:21 Oxygen Delivery Method Room Air 03/09/23 11:21 BMI result Body Mass Index 22.8 Tobacco/Smoking Status: Tobacco use Status Tobacco use date assessed 03/09/23 03/09/23 11:30 Patient Tobacco Use Status Never used Tobacco 03/09/23 11:30 PHQ-9: PHQ-9 Score PHQ-9: Total score 0 03/09/23 11:30 Depression Screening Interpretation: Negative Thrive Assessment: Date of Thrive Assessment Date Thrive assessed 12/15/22 03/09/23 11:30 Const General: No confusion Orientation/consciousness: No confusion HENMT Head: Yes normocephalic Ears: external ears normal and TM's normal bilaterally Face and sinus: Yes normal facial exam Mouth: moist mucous membranes Throat: Yes tonsils normal Eyes Conjunctivae: conjunctivae normal Pupils: Equal, round and reactive pupils present and Pupil accommodation reflex normal Direct Ophthalmoscopy: normal light reflex Neck Neck: No lymphadenopathy Thyroid: Thyroid normal Chest Chest palpation & inspection: normal inspection of the chest Resp Effort & Inspection: normal respiratory effort and no audible wheezes Auscultation: clear to auscultation bilaterally, no crackles, no wheezes and lung sounds not diminished Cardio Rate: regular rate Rhythm: regular rhythm Peripheral pulses: radial pulses present and dorsalis pedis present GI Palpation (GI): no masses Auscultation: normal bowel sounds and normoactive bowel sounds Rectal Exam - Female: deferred Skin General skin exam: no rashes or lesions noted Rashes: no rashes Neuro General: No confusion Cranial nerves: Yes Equal, round and reactive pupils present and Yes Normal hearing present Cognition (Neuro): normal cognition Gait exam (Neuro): Normal gait present Motor exam (neuro): 5/5 motor strength present throughout Deep tendon reflexes (DTR's): Right brachioradialis reflex intensity grade: 2+, Left brachioradialis reflex intensity grade: 2+, Right patellar reflex intensity grade: 2+ and Left patellar reflex intensity grade: 2+ Extrem General: No edema Assessment and Plan Assessment & Plan (1) Annual physical exam: Code(s): Z00.00 - Encounter for general adult medical examination without abnormal findings (2) Sinus tachycardia: Code(s): R00.0 - Tachycardia, unspecified Plan: cardiac workup has been negative. 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 Panel Today N30.10 - Interstitial cystitis (chronic) without hematuria Lipid Panel Today E78.00 - Pure hypercholesterolemia, unspecified, N30.10 - Interstitial cystitis (chronic) without hematuria Free T4 (Free Thyroxine) Today N30.10 - Interstitial cystitis (chronic) without hematuria Thyroid Stimulating Hormone Today N30.10 - Interstitial cystitis (chronic) without hematuria Vitamin D 25-OH Total Today N30.10 - Interstitial cystitis (chronic) without hematuria Complete Blood Count Auto Diff Today N30.10 - Interstitial cystitis (chronic) without hematuria Magnesium Today N30.10 - Interstitial cystitis (chronic) without hematuria Phosphorus Today N30.10 - Interstitial cystitis (chronic) without hematuria UA w Microscopic Today N30.10 - Interstitial cystitis (chronic) without hematuria Medications: New duloxetine 30 mg PO DAILY 30 caps 3RF M79.7 - Fibromyalgia Refilled cyclobenzaprine 5 mg PO TID PRN 30 tabs 0RF muscle spasm N30.10 - Interstitial cystitis (chronic) without hematuria Coding Level of Care Code Est Pt Prev Care 40-64y(73157) Diagnoses Annual physical exam Z00.00 Sinus tachycardia R00.0 Interstitial cystitis N30.10 Spondylolysis of lumbar region M43.06 Fibromyalgia M79.7
== END 2023-03-09 12:31 | disposition home or self-care (01) ==
PROVIDERS: PCP Internal Medicine; Visit Provider Internal Medicine
DX: Z00.00 Encounter for general adult medical examination without abnormal findings (principal); R00.0 Tachycardia, unspecified; N30.10 Interstitial cystitis (chronic) without hematuria; M43.06 Spondylolysis, lumbar region; M79.7 Fibromyalgia
CPT/HCPCS: 99396

== ENCOUNTER 2023-03-10 14:06 | Outpatient (REF) | payer OTHER, SELFPAY ==
--- NOTE | ~2023-03-10 | XR_ITS ---
EXAMINATION: XR LUMBOSACRAL SPINE CLINICAL INFORMATION: Lumbar spondylosis. COMPARISON: None available. TECHNIQUE: AP and lateral views of the lumbar spine and lateral view of the lumbosacral junction. FINDINGS: The vertebral bodies and posterior elements are normal. The disc spaces are preserved, and the vertebral alignment is normal. There is multi-level very mild thoracolumbar spondylosis. The paraspinal soft tissues are normal. XR/XR lumbar spine 2-3V IMPRESSION: 1. No acute fracture or spondylolisthesis is seen. 2. The lumbar disc spaces are well-maintained. 3. There is multi-level very mild thoracolumbar spondylosis.
== END 2023-03-10 14:07 | disposition home or self-care (01) ==
LOC: HO.XRAY 14:06
PROVIDERS: PCP Internal Medicine; Visit Provider Internal Medicine
DX: M43.06 Spondylolysis, lumbar region (principal)
CPT/HCPCS: 72100

== ENCOUNTER 2023-03-11 09:28 | Outpatient (REF) | payer OTHER, SELFPAY ==
[2023-03-11 09:45] LABS: MANUAL DIFF FLAG NO
[2023-03-11 10:04] LABS: Basophils Percent Auto 0.2 % (0-2); Eosinophils Absolute Auto 0.1 X10*3/uL (0.0-0.4); Eosinophils Percent Auto 1.9 % (0-4); Hematocrit 41.9 % (37.0-47.0); Hemoglobin 14.1 g/dl (12.0-16.0); Imm Gran Abs Auto 0.01 X10*3/uL (0.00-0.03); Imm Gran Pct Auto 0.2 % (0.0-0.4); Lymphocytes Absolute Auto 1.7 X10*3/uL (1.2-4.9); Mean Corpuscular HGB Conc 33.7 g/dl (31.0-35.0); Mean Corpuscular Hemoglobin 31.3 pg (27.0-33.0); Mean Corpuscular Volume 92.9 fL (80.0-98.0); Mean Platelet Volume 9.7 fL (9.4-12.3); Monocytes Absolute Auto 0.3 X10*3/uL (0.1-1.2); Monocytes Percent Auto 6.8 % (2-11); Neutrophils Absolute Auto 2.1 x10*3/uL (2.0-8.3); Neutrophils Percent Auto 50.9 % (45-73); Platelet Count 249 X10*3/uL (160-400); Red Blood Count 4.51 X10*6/uL (4.20-5.50); Red Cell Distribution Width 11.9 % (11.0-16.0); White Blood Count 4.1 X10*3/uL (4.8-10.8)
[2023-03-11 10:47] LABS: Erythrocyte Sedimentation Rate 2 MM/HR (0-20)
[2023-03-11 11:07] LABS: Appearance Urine Cloudy; Color Urine Dark Yellow; Glucose Urine UA Negative (Negative); Leukocyte Esterase Urine Negative (Negative); Nitrite Urine Negative (Negative); Specific Gravity - Urine 1.025 (1.005-1.025); UMIC TRIGGER UA YES; Urine Blood Moderate (2+) (Negative); Urine Ketones Trace mg/dL (Negative); Urine Protein Trace mg/dL (Neg-Trace)
[2023-03-11 11:17] LABS: Bacteria Urine None Seen (None Seen); Calcium Oxalate Crystals Urine Present; Hyaline Casts Urine 0-2 /LPF (0-2); WBC Urine 0-5 /HPF (0-5)
[2023-03-11 11:18] LABS: Alanine Aminotransferase 13 U/L (0-31); Albumin Level 4.7 g/dL (3.5-5.0); Alkaline Phosphatase 40 U/L (39-117); Anion Gap 16 (12-20); Aspartate Amino Transferase 18 U/L (5-31); Bilirubin Total 0.6 mg/dL (0.0-1.0); Blood Urea Nitrogen 10 mg/dL (9-16); C Reactive Protein 0.39 mg/dL (< or = 0.50); Carbon Dioxide 23 mmol/L (22-29); Chloride 110 mmol/L (96-108); Cholesterol 276 mg/dL; Estimated Glomerular Filt Rate > 60; Glucose Random 99 mg/dL (60-115); HDL Cholesterol 91 mg/dL; LDL Cholesterol Calculated 176 mg/dl; Magnesium 2.2 mg/dL (1.6-2.6); Phosphorus 3.5 mg/dL (2.7-4.5); Potassium 4.1 mmol/L (3.3-5.1); Sodium 145 mmol/L (135-145); Total Protein 7.1 g/dL (6.5-8.0); Triglycerides 49 mg/dL
[2023-03-11 11:22] LABS: Free T4 (Free Thyroxine) 0.93 ng/dL (0.71-1.85); Thyroid Stimulating Hormone 1.02 uIU/mL (0.32-4.0); Vitamin D 25-OH Total 44.9 ng/mL (>30)
[2023-03-11 11:44] LABS: Vitamin B12 877 pg/mL (200-900)
== END 2023-03-11 09:29 | disposition home or self-care (01) ==
LOC: HO.LAB 09:28
PROVIDERS: PCP Internal Medicine; Visit Provider Internal Medicine
DX: N30.10 Interstitial cystitis (chronic) without hematuria (principal); E78.00 Pure hypercholesterolemia, unspecified; E55.9 Vitamin D deficiency, unspecified
CPT/HCPCS: 36415; 80053; 80061; 81001; 82306; 82607; 82746; 83735; 84100; 84439; 84443; 85025; 85652; 86140

== ENCOUNTER 2023-06-16 09:41 | Outpatient (AMB) | payer OTHER, SELFPAY ==
[2023-06-16 09:56] VITALS: BP 134/68; PULSE 78; O2SAT 99; BMI 23.0
--- NOTE | 2023-06-16 09:56 | MHC.PC.OV ---
Vital Signs 06/16/23 09:56 Height 5 ft 8 in Weight 151 lb BMI 23.0 BP 134/68 Blood Pressure Location Lt brachial Position Sitting Pulse 78 Pulse Source Pulse Oximeter Pulse Oximetry (%) 99 Oxygen Delivery Method Room Air Intake Visit Reasons: 3 month f/u Allergies penicillin V Allergy (Unknown, Verified 06/16/23 09:56) Unknown Penicillins [PCN] Allergy (Unknown, Verified 06/16/23 09:56) UNKNOWN Iodinated Contrast Media Adverse Reaction (Intermediate, Verified 06/16/23 09:56) Back Pain Clindamycin Palmitate HCl Allergy (Mild, Uncoded 06/16/23 09:56) rash Medication List - Last Reconciled 06/16/23 by Kike Peters, acetaminophen (Tylenol) 325 mg PO QID PRN azithromycin (Zithromax) For 250 mg dose pack: take 500 mg today (day 1), then 250 mg for 4 days (days 2-5) PO cyclobenzaprine 5 mg PO TID PRN duloxetine 30 mg PO DAILY ibuprofen 200 mg PO Q6H PRN norethindrone (contraceptive) mg PO DAILY pentosan polysulfate sodium (Elmiron) 100 mg PO .QD Tobacco use date assessed: 03/09/23 Dental Screening Dental Screen Date: 06/16/23 Did you have a dental visit in the last 12 months?: Yes Did you have a dental problem in the last 6 months where you did not have access to dental care?: No Was dental information given to patient?: Patient has dentist HPI 3 month f/u HPI Details 62-year-old female with a history of interstitial cystitis lumbar spondylosis fibromyalgia and sinus tachycardia last seen in February 2023. Patient is here for follow-up. Mammogram is due patient is up to date for the Cologuard test. Review of the notes mammogram done March 2023. Patient also had a CT scan of the abdomen and pelvis given to me dated May 2019 showing a right lower pole kidney calculi 2 mm with L5 left spondylosis. Patient had a follow-up x-ray done in March 2023 showing multilevel mild thoracolumbar spondylosis. PAtient feels that after the cardiac work up feels tired a lot. PAtient will be seeing urology for the ? renal calculi. pateint now complains congestion - no fevers, - takeig zyrtec but discussed with the patient to take thanh instead of zyrted as this can cause drowsiness PFS Medical History (Updated 06/16/23 @ 10:35 by Kike Peters MD) Sinus congestion Fibromyalgia Screening for colon cancer History of renal calculi Right flank pain Back pain Chest discomfort SOB (shortness of breath) Plantar fasciitis Upper respiratory tract infection Adhesive capsulitis of right shoulder Myofascial pain on right side Rotator cuff impingement syndrome of right shoulder Family History (Updated 06/16/23 @ 09:57 by Eryn Browne CMA) Mother CVA (cerebral vascular accident) Maternal Aunt Breast cancer Maternal Uncle Lung cancer Social History Alcohol intake: never Patient Tobacco Use Status: Never used Tobacco e-Cigarette/Vaping Use: Never Used Second Hand Smoke Exposure: No Current occupational status: employed 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 1. Little interest or pleasure in doing things: not at all 2. Feeling down, depressed, or hopeless: not at all 3. Trouble falling or staying asleep, or sleeping too much: not at all 4. Feeling tired or having little energy: not at all 5. Poor appetite or overeating: not at all 6. Feeling bad about yourself - or that you are a failure or have let yourself or your family down: not at all 7. Trouble concentrating on things, such as reading the newspaper or watching television: not at all 8. Moving or speaking so slowly that other people could have noticed. Or the opposite - being so fidgety or restless that you have been moving around a lot more than usual: not at all 9. Thoughts that you would be better off or of hurting yourself in some way: not at all Total score: 0 Depression Screening Interpretation: Negative Depression Screening Done: Yes Source: Developed by Drs. Yaya Rojas, Karie Ortega, Willi Pedersen and colleagues, with an educational cindy from [employer]. Thrive Questionnaire Date Thrive assessed: 12/15/22 AUDIT C Alcohol Use Questionnaire (AUDIT-C) 1. How often do you have a drink containing alcohol?: Never 2. How many drinks containing alcohol do you have on a typical day when you are drinking?: 1 or 2 3. How often do you have six or more drinks on one occasion?: Never Total Score: 0 PADMINI-7 AMB Questionnaire PADMINI-7 Date PADMINI - 7 assessed: 03/09/23 Source: Developed by Drs. Yaya Rojas, Karie Ortega, Willi Pedersen and colleagues, with an educational cindy from [employer]. Physical exam (Primary Care) Vital Signs: Last Vital Signs Pulse 78 06/16/23 09:56 BP 134/68 06/16/23 09:56 Pulse Ox 99 06/16/23 09:56 Oxygen Delivery Method Room Air 06/16/23 09:56 BMI result Body Mass Index 23.0 Tobacco/Smoking Status: Tobacco use Status Tobacco use date assessed 03/09/23 06/16/23 09:57 Patient Tobacco Use Status Never used Tobacco 06/16/23 09:57 e-Cigarette/Vaping Use Never Used 06/16/23 09:57 PHQ-9: PHQ-9 Score PHQ-9: Total score 0 06/16/23 10:08 Depression Screening Interpretation: Negative Thrive Assessment: Date of Thrive Assessment Date Thrive assessed 12/15/22 06/16/23 09:57 Const General: alert; No acute distress Eyes Conjunctivae: conjunctivae normal Resp Auscultation: clear to auscultation bilaterally Cardio Rate: regular rate Rhythm: regular rhythm GI Inspection: Yes normal to inspection Extrem General: Yes normal to inspection and No edema Assessment and Plan Assessment & Plan (1) Right renal stone: Comment: May 2019 right lower pole 2 mm Code(s): N20.0 - Calculus of kidney Plan: Keep well hydrated (2) 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 Be it pork or beef they have a lot of cholesterol LDL goal of less than 130 and triglyceride of less than 150- patient did keto diet (5) Allergic asthma: Code(s): J45.909 - Unspecified asthma, uncomplicated (6) Sinus congestion: Code(s): R09.81 - Nasal congestion (7) Insomnia: Code(s): G47.00 - Insomnia, unspecified Orders: Orders Lipid Panel 3 Months E78.00 - Pure hypercholesterolemia, unspecified Comprehensive Met. Panel 3 Months E78.00 - Pure hypercholesterolemia, unspecified Complete Blood Count Auto Diff 3 Months E78.00 - Pure hypercholesterolemia, unspecified Medications: New albuterol sulfate 90 mcg/actuation (Ventolin HFA) 2 puffs inhalation Q6H PRN 8.5 grams 0RF shortness of breath or wheezing J45.909 - Unspecified asthma, uncomplicated azithromycin (Zithromax) For 250 mg dose pack: take 500 mg today (day 1), then 250 mg for 4 days (days 2-5) PO 6 tabs 0RF R09.81 - Nasal congestion Coding Level of Care Code Est Pt Level 4 (78528) Diagnoses Right renal stone N20.0 Spondylolysis of lumbar region M43.06 Interstitial cystitis N30.10 Hypercholesterolemia E78.00 Allergic asthma J45.909 Sinus congestion R09.81 Insomnia G47.00
== END 2023-06-16 11:37 | disposition home or self-care (01) ==
PROVIDERS: PCP Internal Medicine; Visit Provider Internal Medicine
DX: N20.0 Calculus of kidney (principal); M43.06 Spondylolysis, lumbar region; N30.10 Interstitial cystitis (chronic) without hematuria; E78.00 Pure hypercholesterolemia, unspecified; J45.909 Unspecified asthma, uncomplicated; R09.81 Nasal congestion; G47.00 Insomnia, unspecified
CPT/HCPCS: 99214

== ENCOUNTER 2023-06-17 09:14 | Outpatient (REF) | payer OTHER, SELFPAY ==
[2023-06-17 10:44] LABS: Appearance Urine Cloudy; Color Urine Yellow; Glucose Urine UA Negative (Negative); Leukocyte Esterase Urine Negative (Negative); Nitrite Urine Negative (Negative); PH 5.5 (5.0-9.0); Specific Gravity - Urine 1.015 (1.005-1.025); UMIC TRIGGER UACC YES; Urine Blood Moderate (2+) (Negative); Urine Ketones Negative (Negative); Urine Protein Negative (Neg-Trace)
[2023-06-17 10:47] LABS: Bacteria Urine None Seen (None Seen); Hyaline Casts Urine 0-2 /LPF (0-2); WBC Urine 0-5 /HPF (0-5)
[2023-06-17 11:15] LABS: Cholesterol 239 mg/dL (<200); HDL Cholesterol 89 mg/dL (>40); LDL Cholesterol Calculated 141 mg/dL (<100); Triglycerides 46 mg/dL (<150)
== END 2023-06-17 09:15 | disposition home or self-care (01) ==
LOC: HO.LAB 09:14
PROVIDERS: PCP Internal Medicine; Visit Provider Internal Medicine
DX: E78.00 Pure hypercholesterolemia, unspecified (principal)
CPT/HCPCS: 36415; 80061; 81001

== ENCOUNTER 2023-11-24 09:41 | Outpatient (REF) | payer OTHER, SELFPAY ==
[2023-11-24 09:57] LABS: MANUAL DIFF FLAG NO
[2023-11-24 10:37] LABS: Basophils Percent Auto 0.6 % (0-2); Eosinophils Absolute Auto 0.1 X10*3/uL (0.0-0.4); Hematocrit 43.2 % (37.0-47.0); Hemoglobin 14.4 g/dl (12.0-16.0); Imm Gran Abs Auto 0.01 X10*3/uL (0.00-0.03); Imm Gran Pct Auto 0.2 % (0.0-0.4); Lymphocytes Absolute Auto 1.5 X10*3/uL (1.2-4.9); Lymphocytes Percent Auto 28.5 % (20-40); Mean Corpuscular HGB Conc 33.3 g/dl (31.0-35.0); Mean Corpuscular Hemoglobin 31.6 pg (27.0-33.0); Mean Corpuscular Volume 94.9 fL (80.0-98.0); Mean Platelet Volume 9.7 fL (9.4-12.3); Monocytes Absolute Auto 0.3 X10*3/uL (0.1-1.2); Monocytes Percent Auto 5.9 % (2-11); Neutrophils Absolute Auto 3.3 x10*3/uL (2.0-8.3); Neutrophils Percent Auto 63.8 % (45-73); Platelet Count 282 X10*3/uL (160-400); Red Blood Count 4.55 X10*6/uL (4.20-5.50); Red Cell Distribution Width 12.4 % (11.0-16.0); White Blood Count 5.2 X10*3/uL (4.8-10.8)
[2023-11-24 11:10] LABS: Alanine Aminotransferase 12 U/L (0-31); Albumin Level 4.3 g/dL (3.5-5.0); Alkaline Phosphatase 36 U/L (39-117); Anion Gap 12 (12-20); Aspartate Amino Transferase 18 U/L (5-31); Bilirubin Total 0.5 mg/dL (0.0-1.0); Blood Urea Nitrogen 11 mg/dL (9-16); Calcium 9.6 mg/dL (8.4-10.2); Carbon Dioxide 23 mmol/L (22-29); Chloride 108 mmol/L (96-108); Cholesterol 235 mg/dL (<200); Estimated Glomerular Filt Rate > 60; Glucose Random 93 mg/dL (60-115); HDL Cholesterol 86 mg/dL (>40); LDL Cholesterol Calculated 141 mg/dL (<100); Potassium 3.6 mmol/L (3.3-5.1); Sodium 139 mmol/L (135-145); Total Protein 6.9 g/dL (6.5-8.0); Triglycerides 43 mg/dL (<150)
== END 2023-11-24 09:42 | disposition home or self-care (01) ==
LOC: HO.LAB 09:41
PROVIDERS: Visit Provider Internal Medicine
DX: E78.00 Pure hypercholesterolemia, unspecified (principal)
CPT/HCPCS: 36415; 80053; 80061; 85025

== ENCOUNTER 2024-03-22 09:49 | Outpatient (REF) | payer OTHER, SELFPAY ==
[2024-03-22 10:02] LABS: MANUAL DIFF FLAG NO
[2024-03-22 10:49] LABS: Basophils Percent Auto 0.7 % (0-2); Eosinophils Absolute Auto 0.1 X10*3/uL (0.0-0.4); Eosinophils Percent Auto 2.5 % (0-4); Hematocrit 40.1 % (37.0-47.0); Hemoglobin 13.6 g/dl (12.0-16.0); Imm Gran Abs Auto 0.01 X10*3/uL (0.00-0.03); Imm Gran Pct Auto 0.2 % (0.0-0.4); Lymphocytes Absolute Auto 1.5 X10*3/uL (1.2-4.9); Lymphocytes Percent Auto 32.5 % (20-40); Mean Corpuscular HGB Conc 33.9 g/dl (31.0-35.0); Mean Corpuscular Hemoglobin 31.3 pg (27.0-33.0); Mean Corpuscular Volume 92.4 fL (80.0-98.0); Mean Platelet Volume 9.8 fL (9.4-12.3); Monocytes Absolute Auto 0.4 X10*3/uL (0.1-1.2); Monocytes Percent Auto 7.8 % (2-11); Neutrophils Absolute Auto 2.5 x10*3/uL (2.0-8.3); Neutrophils Percent Auto 56.3 % (45-73); Platelet Count 245 X10*3/uL (160-400); Red Blood Count 4.34 X10*6/uL (4.20-5.50); Red Cell Distribution Width 11.7 % (11.0-16.0); White Blood Count 4.5 X10*3/uL (4.8-10.8)
[2024-03-22 11:31] LABS: Alanine Aminotransferase 25 U/L (0-31); Albumin Level 4.6 g/dL (3.5-5.0); Alkaline Phosphatase 45 U/L (39-117); Anion Gap 11 (12-20); Aspartate Amino Transferase 27 U/L (5-31); Bilirubin Total 0.8 mg/dL (0.0-1.0); Blood Urea Nitrogen 9 mg/dL (9-16); Calcium 9.4 mg/dL (8.4-10.2); Carbon Dioxide 26 mmol/L (22-29); Chloride 108 mmol/L (96-108); Cholesterol 288 mg/dL (<200); Estimated Glomerular Filt Rate > 60; Glucose Random 98 mg/dL (60-115); HDL Cholesterol 97 mg/dL (>40); LDL Cholesterol Calculated 180 mg/dL (<100); Potassium 3.8 mmol/L (3.3-5.1); Sodium 141 mmol/L (135-145); Triglycerides 57 mg/dL (<150)
[2024-03-22 11:34] LABS: Free T4 (Free Thyroxine) 0.83 ng/dL (0.71-1.85); Thyroid Stimulating Hormone 0.65 uIU/mL (0.32-4.0); Vitamin D 25-OH Total 36.5 ng/mL (>30)
[2024-03-22 12:58] LABS: Folate 10.7 ng/mL (> or = 4.0); Vitamin B12 762 pg/mL (200-900)
[2024-03-23 08:52] LABS: Follicle Stimulating Hormone 89.9 mIU/mL; Lutenizing Hormone 44.9 mIU/mL; Prolactin 7.8 ng/mL
[2024-03-30 20:20] LABS: Estrogen 116 pg/mL
== END 2024-03-22 09:50 | disposition home or self-care (01) ==
LOC: HO.LAB 09:49
PROVIDERS: PCP Internal Medicine; Visit Provider Internal Medicine
DX: G47.00 Insomnia, unspecified (principal); E78.00 Pure hypercholesterolemia, unspecified
CPT/HCPCS: 36415; 80053; 80061; 82306; 82607; 82672; 82746; 83001; 83002; 84146; 84439; 84443; 85025

== ENCOUNTER 2024-03-23 11:15 | Outpatient (AMB) | payer OTHER, SELFPAY ==
[2024-03-23 11:20] VITALS: BP 130/62; PULSE 115; O2SAT 98; BMI 22.7
--- NOTE | 2024-03-23 11:20 | A.OFFPC_ITS ---
Vital Signs 03/23/24 11:20 Height 5 ft 8 in Weight 149 lb BMI 22.7 BP 130/62 Blood Pressure Location Lt brachial Position Sitting Pulse 115 H Pulse Source Pulse Oximeter Pulse Oximetry (%) 98 Oxygen Delivery Method Room Air Intake Visit Reasons: pe Allergies penicillin V Allergy (Unknown, Verified 03/23/24 11:20) Unknown Penicillins [PCN] Allergy (Unknown, Verified 03/23/24 11:20) UNKNOWN Iodinated Contrast Media Adverse Reaction (Intermediate, Verified 03/23/24 11:20) Back Pain Clindamycin Palmitate HCl Allergy (Mild, Uncoded 03/23/24 11:20) rash Medication List - Last Reconciled 03/23/24 by Kike Peters MD albuterol sulfate 90 mcg/actuation (Ventolin HFA) 2 puffs inhalation Q6H PRN estradiol 1 patch transdermally 2x a week; ibuprofen 200 mg PO Q6H PRN progesterone micronized 100 mg PO QAM Tobacco use date assessed: 03/23/24 Dental Screening Dental Screen Date: 03/23/24 Did you have a dental visit in the last 12 months?: Yes Did you have a dental problem in the last 6 months where you did not have access to dental care?: No Was dental information given to patient?: Patient has dentist HPI pe HPI Details 63-year-old female with a history of marcia al calculi lumbar spondylosis interstitial cystitis hypercholesterolemia allergic asthma coming in for physical exam last seen in 06/29/2023. Patient's mammogram is due this month Cologuard has been negative in 01/27/2023, Pap smear sees Gynecology. Patient is here for physical exam. Review of the notes , received notes from Urology that the patient did not follow-up. But was seen in September and was advised to have a CT scan of the abdomen and cystoscopy. PAtient has tachycardia and most likely anxiety driven. PAtient did see Urology 12/[address] scan done but do not see results. Patient has been follow-up with OB machine puller over and has prescribed estrogen and progesterone and advised the patient to talk to the machine puller over for those blood work that she wants. Otherwise discussed about the blood work results [facility] Medical History (Updated 03/23/24 @ 12:15 by Kike Peters MD) Sinus congestion Fibromyalgia Screening for colon cancer History of renal calculi Right flank pain Back pain Chest discomfort SOB (shortness of breath) Plantar fasciitis Upper respiratory tract infection Adhesive capsulitis of right shoulder Myofascial pain on right side Rotator cuff impingement syndrome of right shoulder Family History (Updated 06/16/23 @ 09:57 by Eryn Browne CMA) Mother CVA (cerebral vascular accident) Maternal Aunt Breast cancer Maternal Uncle Lung cancer Social History Housing: House Alcohol intake: never Patient Tobacco Use Status: Never used Tobacco Tobacco use type: Cigarette e-Cigarette/Vaping Use: Never Used Second Hand Smoke Exposure: No service: No Current occupational status: employed 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 1. Little interest or pleasure in doing things: not at all 2. Feeling down, depressed, or hopeless: not at all 3. Trouble falling or staying asleep, or sleeping too much: not at all 4. Feeling tired or having little energy: not at all 5. Poor appetite or overeating: not at all 6. Feeling bad about yourself - or that you are a failure or have let yourself or your family down: not at all 7. Trouble concentrating on things, such as reading the newspaper or watching television: not at all 8. Moving or speaking so slowly that other people could have noticed. Or the opposite - being so fidgety or restless that you have been moving around a lot more than usual: not at all 9. Thoughts that you would be better off or of hurting yourself in some way: not at all Total score: 0 Depression Screening Interpretation: Negative Depression Screening Done: Yes Source: Developed by Drs. Yaya Rojas, Karie Ortega, Willi Pedersen and colleagues, with an educational cindy from [employer]. Thrive Questionnaire Date Thrive assessed: 03/23/24 I am a: Patient What is your living situation today?: I have a steady place to live Within the past 12 months, did the food you bought not last and you didn't have the money to get more?: Never true Within the past 12 months, did you worry whether your food would run out before you got money to buy more?: Never true Do you have trouble paying for medicines?: No Do you have trouble getting transportation to medical appointments?: No Do you have trouble paying your heating and electricity bill?: No Do you have trouble taking care of your child, family member or friend?: No Do you have trouble with day-to-day activities such as bathing, preparing meals, shopping, managing finances, etc.?: No Are you currently unemployed and looking for a job?: No Are you interested in more education?: No Currently or been in a relationship where the following occur: No concerns reported THRIVE Score: 0 AUDIT C Alcohol Use Questionnaire (AUDIT-C) 1. How often do you have a drink containing alcohol?: Never 2. How many drinks containing alcohol do you have on a typical day when you are drinking?: 1 or 2 3. How often do you have six or more drinks on one occasion?: Never Total Score: 0 PADMINI-7 AMB Questionnaire PADMINI-7 Date PADMINI - 7 assessed: 03/23/24 Feeling nervous, anxious, or on edge: 0 = Not at all Not being able to stop or control worryin = Not at all Worrying too much about different things: 0 = Not at all Trouble relaxin = Not at all Being so restless that it is hard to sit still: 0 = Not at all Becoming easily annoyed or irritable: 0 = Not at all Feeling afraid as if something awful might happen: 0 = Not at all Total PADMINI-7 score (0-4 normal; 5-9 mild; 10-14 moderate; 15-21 severe): 0 Source: Developed by Drs. Yaya Rojas, Karie Ortega, Willi Pedersen and colleagues, with an educational cindy from [employer]. Review of Systems Const Denies poor appetite and Denies weakness Eyes Denies no additional complaints ENT Reports Normal hearing present, Denies dizziness, Denies nasal congestion, Denies tinnitus and Denies sore throat Card Denies chest pain, Denies syncope, Denies rapid heart rate and Denies dyspnea Resp Denies cough and Denies dyspnea GI Denies change in stool character, Reports constipation, Denies diarrhea, Denies nausea and Denies vomiting Denies urinary frequency, Denies difficulty voiding and Denies dysuria Neuro Reports Normal hearing present, Denies confusion, Denies dizziness, Denies syncope and Denies weakness Psych Denies confusion Physical exam (Primary Care) Vital Signs: Last Vital Signs Pulse 115 H 03/23/24 11:20 BP 130/62 03/23/24 11:20 Pulse Ox 98 03/23/24 11:20 Oxygen Delivery Method Room Air 03/23/24 11:20 BMI result Body Mass Index 22.7 Tobacco/Smoking Status: Tobacco use Status Tobacco use date assessed 03/23/24 03/23/24 11:22 Patient Tobacco Use Status Never used Tobacco 03/23/24 11:22 Tobacco use type Cigarette 03/23/24 11:22 e-Cigarette/Vaping Use Never Used 03/23/24 11:22 PHQ-9: PHQ-9 Score PHQ-9: Total score 0 03/23/24 11:46 Depression Screening Interpretation: Negative Thrive Assessment: Date of Thrive Assessment Date Thrive assessed 03/23/24 03/23/24 11:22 Currently or been in a relationship where the following occur: No concerns reported Const General: No confusion Orientation/consciousness: No confusion HENMT Head: Yes normocephalic Ears: external ears normal and TM's normal bilaterally Face and sinus: Yes normal facial exam Mouth: moist mucous membranes Throat: Yes tonsils normal Eyes Conjunctivae: conjunctivae normal Pupils: Equal, round and reactive pupils present and Pupil accommodation reflex normal Direct Ophthalmoscopy: normal light reflex Neck Neck: No lymphadenopathy Thyroid: Thyroid normal Chest Chest palpation & inspection: normal inspection of the chest Resp Effort & Inspection: normal respiratory effort and no audible wheezes Auscultation: clear to auscultation bilaterally, no crackles, no wheezes and lung sounds not diminished Cardio Rate: regular rate Rhythm: regular rhythm Peripheral pulses: radial pulses present and dorsalis pedis present GI Palpation (GI): no masses Auscultation: normal bowel sounds and normoactive bowel sounds Rectal Exam - Female: deferred Skin General skin exam: no rashes or lesions noted Rashes: no rashes Neuro General: No confusion Cranial nerves: Yes Equal, round and reactive pupils present and Yes Normal hearing present Cognition (Neuro): normal cognition Gait exam (Neuro): Normal gait present Motor exam (neuro): 5/5 motor strength present throughout Deep tendon reflexes (DTR's): Right brachioradialis reflex intensity grade: 2+, Left brachioradialis reflex intensity grade: 2+, Right patellar reflex intensity grade: 2+ and Left patellar reflex intensity grade: 2+ Extrem General: No edema Assessment and Plan Assessment & Plan (1) Annual physical exam: Code(s): Z00.00 - Encounter for general adult medical examination without abnormal findings Plan: Patient is advised to eat healthy, keep well hydrated, keep active and have adequate sleep. (2) Interstitial cystitis: Code(s): N30.10 - Interstitial cystitis (chronic) without hematuria Plan: Patient has seen Urology in September and was advised to get a CT scan as well as cystoscopy. Results not here and has missed an appointment in November. (3) Spondylolysis of lumbar region: Comment: L 5 to the left 05/2019 Code(s): M43.06 - Spondylolysis, lumbar region Plan: Keep active (4) Right renal stone: Comment: May 2019 right lower pole 2 mm Code(s): N20.0 - Calculus of kidney Plan: Continue to keep well hydrated (5) Hypercholesterolemia: Code(s): E78.00 - Pure hypercholesterolemia, unspecified Plan: Avoid fried foods, chicken skin, eggs, butter margarine, pastries and meat. Be it pork or beef they have a lot of cholesterol LDL goal of less than 130 and triglyceride of less than 150. ASCVD risk 3.4 10 years lifetime of 2.6 (6) Allergic asthma: Code(s): J45.909 - Unspecified asthma, uncomplicated Plan: Continue with albuterol as needed (7) Menopausal disorder: Code(s): N95.9 - Unspecified menopausal and perimenopausal disorder Orders: Orders XR DEXA axial skeleton Today M81.0 - Age-related osteoporosis without current pathological fracture, N95.9 - Unspecified menopausal and perimenopausal disord er Cortisol Random 3 Months E78.00 - Pure hypercholesterolemia, unspecified Lipid Panel 3 Months E78.00 - Pure hypercholesterolemia, unspecified Comprehensive Met. Panel 3 Months E78.00 - Pure hypercholesterolemia, unspecified Coding Level of Care Code Est Pt Prev Care 40-64y([id number]) Diagnoses Annual physical exam Z00.00 Interstitial cystitis N30.10 Spondylolysis of lumbar region M43.06 Right renal stone N20.0 Hypercholesterolemia E78.00 Allergic asthma J45.909 Menopausal disorder N95.9
== END 2024-03-23 12:43 | disposition home or self-care (01) ==
PROVIDERS: PCP Internal Medicine; Visit Provider Internal Medicine
DX: Z00.00 Encounter for general adult medical examination without abnormal findings (principal); N30.10 Interstitial cystitis (chronic) without hematuria; M43.06 Spondylolysis, lumbar region; N20.0 Calculus of kidney; E78.00 Pure hypercholesterolemia, unspecified; J45.909 Unspecified asthma, uncomplicated; N95.9 Unspecified menopausal and perimenopausal disorder
CPT/HCPCS: 99396

== ENCOUNTER 2024-04-15 08:30 | Outpatient (REF) | payer OTHER, SELFPAY ==
--- NOTE | ~2024-04-15 | MM_ITS ---
EXAMINATION: BONE DENSITOMETRY CLINICAL INDICATION: Age-related osteoporosis without current pathological fracture. COMPARISON: This is the patient's baseline examination. TECHNIQUE: Using a [employer] DXA System (software version: 13.1) manufactured by [employer], dual-energy x-ray absorptiometry was performed of the lumbar spine and left hip. The images are of good technical quality. Summary results are attached. FINDINGS: LEFT FEMUR, NECK: BMD 1.001 g/cm2, Z-score 1.0, T-score -0.3, normal. LEFT FEMUR, TOTAL: BMD 1.033 g/cm2, Z-score 1.1, T-score 0.2, normal. AP SPINE L1-L4: BMD 1.126 g/cm2, Z-score 0.7, T-score -0.5, normal. IDENTIFIED RISK FACTORS: Menopause. HISTORY OF FRACTURE: None listed. MEDICATIONS: Calcium supplements or multivitamin, vitamin D, ERT/SERMS. MM/XR DEXA axial skeleton IMPRESSION: 1. DIAGNOSIS: Normal bone density based on the lowest T-score value of -0.5 in the lumbar spine applying World Health Organization criteria. 2. 10-YEAR FRACTURE RISK PREDICTION, FRAX: According to the guidelines, FRAX calculation should only be performed on patients in the osteopenia bone density category. Therefore, FRAX was not performed on this patient. 3. Treatment Recommendations: NOF guidelines recommend consideration for treatment in postmenopausal women and men age 50 and older presenting with the following: -A hip or vertebral (clinical or morphometric) fracture. -T-score less than or equal to -2.5 at the femoral neck or spine after appropriate evaluation to exclude secondary causes. -Low bone mass at the hip or spine and a 10-year fracture probability by FRAX of greater than or equal to 3% for hip fracture or greater than or equal to 20% for major osteoporotic fracture based on the [place] adapted WHO algorithm. 4. Other Recommendations: All treatment decisions require clinical judgment and consideration of individual patient factors, including patient preferences, comorbidities, previous drug use, risk factors not captured in the FRAX model (e.g. frailty, falls, vitamin D deficiency, increased bone turnover, interval significant decline in bone density) and possible under or overestimation of fracture risk by FRAX. FUTURE SCAN RECOMMENDATION: People with diagnosed cases of osteoporosis or at high risk for fracture should have regular bone mineral density tests. For patients eligible for Medicare, routine testing is allowed once every 2 years. The testing frequency can be increased to one year for patients who have rapidly progressing disease, those who are receiving or discontinuing medical therapy to restore bone mass, or have additional risk factors. Electronically signed by: Nacho Varela MD 04/20/2024 01:09 PM EDT RP
== END 2024-04-15 08:31 | disposition home or self-care (01) ==
LOC: HO.MAMMO 08:30
PROVIDERS: PCP Internal Medicine; Visit Provider Internal Medicine
DX: M81.0 Age-related osteoporosis without current pathological fracture (principal); Z78.0 Asymptomatic menopausal state
CPT/HCPCS: 77080

== ENCOUNTER 2024-10-26 10:09 | Outpatient (REF) | payer OTHER, SELFPAY ==
[2024-10-26 11:48] LABS: Alanine Aminotransferase 15 U/L (0-31); Albumin Level 4.5 g/dL (3.5-5.0); Alkaline Phosphatase 46 U/L (39-117); Anion Gap 10 (12-20); Aspartate Amino Transferase 23 U/L (5-31); Bilirubin Total 0.8 mg/dL (0.0-1.0); Blood Urea Nitrogen 11 mg/dL (9-16); Calcium 9.4 mg/dL (8.4-10.2); Carbon Dioxide 26 mmol/L (22-29); Chloride 110 mmol/L (96-108); Cholesterol 250 mg/dL (<200); Estimated Glomerular Filt Rate > 60; Glucose Random 92 mg/dL (60-115); HDL Cholesterol 91 mg/dL (>40); LDL Cholesterol Calculated 151 mg/dL (<100); Potassium 3.7 mmol/L (3.3-5.1); Sodium 142 mmol/L (135-145); Total Protein 7.3 g/dL (6.5-8.0); Triglycerides 42 mg/dL (<150)
[2024-10-26 12:00] LABS: Cortisol Random 14.9 ug/dL
[2024-11-01 20:03] LABS: Estrogen 59 pg/mL
[2024-11-10 18:43] LABS: Progesterone <0.1 ng/mL
== END 2024-10-26 10:10 | disposition home or self-care (01) ==
LOC: HO.LAB 10:09
PROVIDERS: PCP Internal Medicine; Visit Provider Internal Medicine
DX: E78.00 Pure hypercholesterolemia, unspecified (principal); N95.9 Unspecified menopausal and perimenopausal disorder
CPT/HCPCS: 36415; 80053; 80061; 82533; 82672; 84144

== ENCOUNTER 2024-10-29 10:28 | Outpatient (REF) | payer OTHER, SELFPAY ==
--- NOTE | ~2024-10-29 | XR_ITS ---
CLINICAL HISTORY: M79.675 - Pain in left toe(s) 3 view left foot Comparison: None Findings: Bones intact. No dislocations. Probable 4th digit hammertoe. No significant arthritic change or erosions. No ankle effusion. No radiopaque foreign body. IMPRESSION: No acute fracture or dislocation. This document has been electronically signed by: Mela Whaley DO on 10/31/2024 13:53:56
== END 2024-10-29 10:29 | disposition home or self-care (01) ==
LOC: HO.XRAY 10:28
PROVIDERS: PCP Internal Medicine
DX: M79.675 Pain in left toe(s) (principal)
CPT/HCPCS: 73620

== ENCOUNTER → 2024-10-29 10:47 | Outpatient (BNV) | payer OTHER, SELFPAY | PROVIDERS: PCP Internal Medicine; Visit Provider Radiology Diagnostic Radiology | DX: M79.675 Pain in left toe(s) (principal) | CPT/HCPCS: 73620 ==

== ENCOUNTER 2025-03-28 10:44 | Outpatient (AMB) | payer OTHER, SELFPAY ==
[2025-03-28 10:50] VITALS: BP 110/62; PULSE 77; O2SAT 98; BMI 23.6
--- NOTE | 2025-03-28 10:50 | MHC.PC.OV ---
Vital Signs 03/28/25 10:50 Height 5 ft 8 in Weight 155 lb BMI 23.6 BP 110/62 Blood Pressure Location Lt brachial Position Sitting Pulse 77 Pulse Source Pulse Oximeter Pulse Oximetry (%) 98 Oxygen Delivery Method Room Air Intake Visit Reasons: Annual Exam - see comments Allergies penicillin V Allergy (Unknown, Verified 03/28/25 10:50) Unknown Penicillins (PCN) Allergy (Unknown, Verified 03/28/25 10:50) UNKNOWN Iodinated Contrast Media Adverse Reaction (Intermediate, Verified 03/28/25 10:50) Back Pain Clindamycin Palmitate HCl Allergy (Mild, Uncoded 03/28/25 10:50) rash Medication List - Last Reconciled 03/28/25 by Kike Peters MD albuterol sulfate 90 mcg/actuation (Ventolin HFA) 2 puffs inhalation Q6H PRN cetirizine 10 mg PO DAILY PRN estradiol-norethindrone acet 0.05-0.14 mg/24 hr (CombiPatch) 1 patch transdermal 2XW ibuprofen 200 mg PO Q6H PRN Tobacco use date assessed: 03/28/25 Dental Screening Dental Screen Date: 03/28/25 Did you have a dental visit in the last 12 months?: Yes Did you have a dental problem in the last 6 months where you did not have access to dental care?: No Was dental information given to patient?: Patient has dentist HPI Annual Exam - see comments HPI Details dizzy PFSH Medical History (Updated 10/28/24 @ 15:53 by Sabina Tucker PA-C) Sinus congestion Fibromyalgia Screening for colon cancer History of renal calculi Right flank pain Back pain Chest discomfort SOB (shortness of breath) Plantar fasciitis Upper respiratory tract infection Adhesive capsulitis of right shoulder Myofascial pain on right side Rotator cuff impingement syndrome of right shoulder Family History (Updated 06/16/23 @ 09:57 by Eryn Browne CMA) Mother CVA (cerebral vascular accident) Maternal Aunt Breast cancer Maternal Uncle Lung cancer Social History Housing: House Alcohol intake: never Patient Tobacco Use Status: Never used Tobacco Tobacco use type: Cigarette e-Cigarette/Vaping Use: Never Used Second Hand Smoke Exposure: No service: No Current occupational status: employed 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 1. Little interest or pleasure in doing things: not at all 2. Feeling down, depressed, or hopeless: not at all 3. Trouble falling or staying asleep, or sleeping too much: several days 4. Feeling tired or having little energy: several days 5. Poor appetite or overeating: not at all 6. Feeling bad about yourself - or that you are a failure or have let yourself or your family down: not at all 7. Trouble concentrating on things, such as reading the newspaper or watching television: not at all 8. Moving or speaking so slowly that other people could have noticed. Or the opposite - being so fidgety or restless that you have been moving around a lot more than usual: not at all 9. Thoughts that you would be better off or of hurting yourself in some way: not at all Total score: 2 Depression Screening Interpretation: Positive Depression Screening Done: Yes Source: Developed by Drs. Yaya Rojas, Karie Ortega, Willi Pedersen and colleagues, with an educational cindy from [employer] Thrive Questionnaire Date Thrive assessed: 03/28/25 I am a: Patient What is your living situation today?: I have a steady place to live Within the past 12 months, did the food you bought not last and you didn't have the money to get more?: Never true Within the past 12 months, did you worry whether your food would run out before you got money to buy more?: Never true Do you have trouble paying for medicines?: No Do you have trouble getting transportation to medical appointments?: No Do you have trouble paying your heating and electricity bill?: No Do you have trouble taking care of your child, family member or friend?: No Do you have trouble with day-to-day activities such as bathing, preparing meals, shopping, managing finances, etc.?: No Are you currently unemployed and looking for a job?: No Are you interested in more education?: No Please select the resources that you would like help with: None Currently or been in a relationship where the following occur: No concerns reported THRIVE Score: 0 AUDIT C Alcohol Use Questionnaire (AUDIT-C) 1. How often do you have a drink containing alcohol?: Never 3. How often do you have six or more drinks on one occasion?: Never Total Score: 0 PADMINI-7 AMB Questionnaire PADMINI-7 Date PADMINI - 7 assessed: 03/28/25 Feeling nervous, anxious, or on edge: 0 = Not at all Not being able to stop or control worryin = Not at all Worrying too much about different things: 0 = Not at all Trouble relaxin = Not at all Being so restless that it is hard to sit still: 0 = Not at all Becoming easily annoyed or irritable: 0 = Not at all Feeling afraid as if something awful might happen: 0 = Not at all Total PADMINI-7 score (0-4 normal; 5-9 mild; 10-14 moderate; 15-21 severe): 0 Source: Developed by Drs. Yaya Rojas, Karie Ortega, Willi Pedersen and colleagues, with an educational cindy from [employer] Review of Systems Const Denies poor appetite and Denies weakness Eyes Denies no additional complaints ENT Reports Normal hearing present, Denies dizziness, Denies nasal congestion, Denies tinnitus and Denies sore throat Card Denies chest pain, Denies syncope, Denies rapid heart rate and Denies dyspnea Resp Denies cough and Denies dyspnea GI Denies change in stool character, Reports constipation, Denies diarrhea, Denies nausea and Denies vomiting Denies urinary frequency, Denies difficulty voiding and Denies dysuria Neuro Reports Normal hearing present, Denies confusion, Denies dizziness, Denies syncope and Denies weakness Psych Denies confusion Physical exam (Primary Care) Vital Signs: Last Vital Signs Pulse 77 03/28/25 10:50 BP 110/62 03/28/25 10:50 Pulse Ox 98 03/28/25 10:50 Oxygen Delivery Method Room Air 03/28/25 10:50 BMI result Body Mass Index 23.6 Tobacco/Smoking Status: Tobacco use Status Tobacco use date assessed 03/28/25 03/28/25 10:51 Patient Tobacco Use Status Never used Tobacco 03/28/25 10:51 Tobacco use type Cigarette 03/28/25 10:51 e-Cigarette/Vaping Use Never Used 03/28/25 10:51 PHQ-9: PHQ-9 Score PHQ-9: Total score 2 03/28/25 11:29 Depression Screening Interpretation: Positive Thrive Assessment: Date of Thrive Assessment Date Thrive assessed 03/28/25 03/28/25 10:51 Currently or been in a relationship where the following occur: No concerns reported Const General: No confusion Orientation/consciousness: No confusion HENMT Head: Yes normocephalic Ears: external ears normal and TM's normal bilaterally Face and sinus: Yes normal facial exam Mouth: moist mucous membranes Throat: Yes tonsils normal Eyes Conjunctivae: conjunctivae normal Pupils: Equal, round and reactive pupils present and Pupil accommodation reflex normal Direct Ophthalmoscopy: normal light reflex Neck Neck: No lymphadenopathy Thyroid: Thyroid normal Chest Chest palpation & inspection: normal inspection of the chest Resp Effort & Inspection: normal respiratory effort and no audible wheezes Auscultation: clear to auscultation bilaterally, no crackles, no wheezes and lung sounds not diminished Cardio Rate: regular rate Rhythm: regular rhythm Peripheral pulses: radial pulses present and dorsalis pedis present GI Palpation (GI): no masses Auscultation: normal bowel sounds and normoactive bowel sounds Rectal Exam - Female: deferred Skin General skin exam: no rashes or lesions noted Rashes: no rashes Neuro General: No confusion Cranial nerves: Yes Equal, round and reactive pupils present and Yes Normal hearing present Cognition (Neuro): normal cognition Gait exam (Neuro): Normal gait present Motor exam (neuro): 5/5 motor strength present throughout Deep tendon reflexes (DTR's): Right brachioradialis reflex intensity grade: 2+, Left brachioradialis reflex intensity grade: 2+, Right patellar reflex intensity grade: 2+ and Left patellar reflex intensity grade: 2+ Extrem General: No edema Results AMB Urinalysis, Automated UA Leukoctes 0 Anatoly/uL Last Edit by Eryn Browne CMA on 03/28/25 11:19 UA Nitrite Negative Last Edit by Eryn Browne CMA on 03/28/25 11:19 UA Urobilinogen 0.2 mg/dL Last Edit by Eryn Browne CMA on 03/28/25 11:19 UA Protein 0 mg/dL Last Edit by Eryn Browne CMA on 03/28/25 11:19 UA pH 6.0 Last Edit by Eryn Browne, [facility] on 03/28/25 11:19 UA Blood 80 Timothy/uL Last Edit by Eryn Browne, [facility] on 03/28/25 11:19 UA Specific Tenstrike 1.030 Last Edit by Eryn Browne, [facility] on 03/28/25 11:19 UA Ketone Negative Last Edit by Eryn Browne, [facility] on 03/28/25 11:19 UA Bilirubin 0 mg/dL Last Edit by Eryn Browne, [employer] on 03/28/25 11:19 UA Glucose 0 mg/dL Last Edit by Eryn Browne, [facility] on 03/28/25 11:19 Results Reviewed Results Reviewed: Laboratory Last Values Urine pH (Auto) 6.0 03/28/25 11:18 Specific Tenstrike (Auto) 1.030 03/28/25 11:18 Urine Protein (Auto) 0 mg/dL 03/28/25 11:18 Glucose (UA)(Auto) 0 mg/dL 03/28/25 11:18 Urine Ketones (Auto) Negative 03/28/25 11:18 Urine Blood (Auto) 80 Timothy/uL 03/28/25 11:18 Urine Nitrite (Auto) Negative 03/28/25 11:18 Urine Bilirubin (Auto) 0 mg/dL 03/28/25 11:18 Urine Urobilinogen (Auto) 0.2 mg/dL 03/28/25 11:18 Leukocyte Esterase (Auto) 0 Anatoly/uL 03/28/25 11:18 Coding Level of Care Code Est Pt Prev Care 40-64y(37616) Diagnoses Annual physical exam Z00.00 Allergic asthma J45.909 Hypercholesterolemia E78.00 Interstitial cystitis N30.10 Assessment & Plan Assessment & Plan (1) Annual physical exam: Code(s): Z00.00 - Encounter for general adult medical examination without abnormal findings Category: Medical Plan: Patient is advised to eat healthy, keep well hydrated, keep active and have adequate sleep. (2) Allergic asthma: Code(s): J45.909 - Unspecified asthma, uncomplicated Category: Medical Plan: Continue to use the albuterol as needed (3) Hypercholesterolemia: Code(s): E78.00 - Pure hypercholesterolemia, unspecified Category: Medical Plan: Avoid fried foods, chicken skin, eggs, butter margarine, pastries and meat. Be it pork or beef they have a lot of cholesterol (4) Interstitial cystitis: Code(s): N30.10 - Interstitial cystitis (chronic) without hematuria Category: Medical Plan: Follow-up with urology Plan History of Present Illness The patient is a 64-year-old female presenting for a physical examination and wellness visit. She has a history of lumbar spondylosis, nephrolithiasis, hypercholesterolemia, and asthma. Her last mammogram was conducted in March 2024, and a Cologuard test was performed in January 2023. The patient had an x-ray of the left toe in October 2024, which was negative. Blood work done in March revealed a normal blood count with mild leukopenia, normal electrolytes, renal function, blood sugar, and liver function, but elevated cholesterol levels. A urine test conducted today showed some blood but no white blood cells. Health Maintenance - Mammogram conducted in March 2024 - Cologuard test performed in January 2023 - Pap smear up to date Social History - Family status: Patient is the primary caregiver for her mother, which impacts her ability to maintain personal health routines. Review of Systems Physical Exam General: Cooperative, healthy appearing, comfortable, no acute distress and well developed Orientation: Patient oriented x3 Limitations: No limitations Head: Normal to inspection Ears: Hearing grossly normal bilaterally Nose: Normal external nose present Face and sinus: Normal facial exam Eyes: Appearance normal, both eyes and all related structures Neck: Normal visual inspection and Yes full ROM Respiratory: Normal respiratory effort and able to speak in complete sentences. Clear to auscultation bilaterally Cardiovascular: Regular rate and rhythm. Normal S1 and S2 GI: Normal to inspection. Soft to palpation and nontender Skin: No rashes or lesions noted Neuro: Patient oriented x3 Extremities: Normal to inspection Results - X-ray of the left toe in October 2024: Negative - Blood work in March: Normal blood count with mild leukopenia, normal electrolytes, renal function, blood sugar, liver function, elevated cholesterol - Urine test today: Presence of blood, no white blood cells Plan The patient is advised to continue using albuterol as needed for asthma management. For hypercholesterolemia, a follow-up plan should be established to address the elevated cholesterol levels noted in recent blood work. A referral to urology is recommended for further evaluation of nephrolithiasis, given the presence of blood in the urine. Patient was informed and verbally consented to the use of an ambient scribe for clinic note documentation during this visit. Discussion Notes Patient Instructions - Continue using albuterol as needed for asthma. - Follow up with urology for further evaluation of kidney stones. - Maintain hydration and monitor for any changes in symptoms. Orders: Orders Thyroid Stimulating Hormone 03/26/25 E7. - Pure hypercholesterolemia, unspecified Lipid Panel 03/26/25 E7 - Pure hypercholesterolemia, unspecified Vitamin B12 and Folate 03/26/25 E7. - Pure hypercholesterolemia, unspecified Vitamin D 25-OH Total 03/26/25 E7. - Pure hypercholesterolemia, unspecified Complete Blood Count Auto Diff 03/26/25 E7 - Pure hypercholesterolemia, unspecified XR sinus min 3V Today J45.909 - Unspecified asthma, uncomplicated Estrogen Today J45.909 - Unspecified asthma, uncomplicated Progesterone Today J45.909 - Unspecified asthma, uncomplicated Comprehensive Met. Panel 03/26/25 E7. - Pure hypercholesterolemia, unspecified Free T4 (Free Thyroxine) 03/26/25 E78. - Pure hypercholesterolemia, unspecified UA CC w/rflx Micro + Cult 03/26/25. - Pure hypercholesterolemia, unspecified, R30.0 - Dysuria AMB Urinalysis Automated Today Z13.9 - Encounter for screening, unspecified
--- OUTSIDE RECORDS SUMMARY | 2025-03-28 12:13 | XMS_ITS ---
Author Name [facility] Organization Unknown Care Team Organization Name Specialty Phone Email Start Date End Da te [facility] KATHERYN HUI Primary Care 10/15/2022 03/28/2024 [facility] Termed, PROVIDER Primary Care 06/17/202203/10
--- OUTSIDE RECORDS SUMMARY | 2025-03-28 12:13 | XMS_ITS | Clinical Summary ---
Author Organization [facility] it Address [address] [place] [address] Care Team Providers Care Non Profit Director Name Role Phone Janneth Marrero MD Primary Care Provider [phone] Allergies Active Allergy Reactions Criticality Noted Date Comments Amoxicillin-Pot Clavulanate Other Medium 11/04/2013 Fatigue, myalgia; no rash Clindamycin Diarrhea 09/27/2015 Penicillins Nausea And Vomiting 07/21/2016 Medications norethindrone-e thinyl estradiol (FEMHRT LOW DOSE) 0.5-2.5 mg-mcg per tablet Take 1 tablet by mouth daily. Active simvastatin (ZOCOR) 5 mg tablet TAKE 1 TABLET BY MOUTH EVERYDAY AT BEDTIME 11/14/2022 Active Active Problems Problem Noted Date Diagnosed Date Hyperlipidemia 10/08/2022 Microhematuria 12/11/2018 Fibromyalgia 08/23/2018 Leg cramps 01/20/2018 Vertigo 01/20/2018 Vitamin D deficiency 07/02/2010 Interstitial cystitis 01/21/2010 Immunizations Name Administration Dates Next Due Influenza trivalent, 0.5mL, preservative free (Fluarix; FluLaval; Fluzone) ages 6mo and older (Afluria) 3 years and older 05/04/2020 Tdap Tetanus diptheria acell ular pertussis (Boostrix; Adacel) 7yo and older 03/24/2010 Medical History Medical History Date Comments Other specified temporomandi bular joint disorders 06/22/2006 DX:Other specified temporoma ndibular joint disorders Hematuria 06/17/2007 DX:Hematuria Myalgia and myositis, unspecified 09/07/2006 DX:Myalgia and myositis, unspecified Hyperlipidemia 10/08/2022 DX:Hyperlipidemi a Family History Medical History Relation Name Comments Breast cancer Aunt mat 50 Coronary artery disease Brother sten t in 60s Other: Other Father did not know Arthritis Mother Cataracts Mother Hypertension Mother high chol- Blindness Neg Hx Glaucoma Neg Hx Macular degeneration Neg Hx Strabismus Neg Hx Relation Name Status Comments Aunt mat 50 Brother Alive Father Mother Alive Social History Tobacco Use Types Packs/Day Years Used Date Smoking Tobacco: Never Smokeless Tobacco: Never Alcohol Use Standard Drinks/Week Comments No 0 (1 standard drink = 0.6 oz pur e alcohol) Comments Unknown Sex and Gender Information Value Date Recorded Sex Assigned at Not on file Legal Sex Female 7:29 PM EST Gender Identity Not on file Sexual Orientation Not on file Obstetrics History Last Filed Vital Signs Vital Sign Reading Time Taken Comments Blood Pressure 132/88 10/08/2022 1:37 PM EST Pulse 116 10/08/2022 1:37 PM EST Temperature - - Respiratory Rate - - Oxygen Saturation - - Inhaled Oxygen Concentration - - Weight 69.4 kg (153 lb) 10/08/2022 1:37 PM EST Height 172.7 cm (5' 8 ) 10/08/2022 1:37 PM EST Body Mass Index 23.26 10/08/2022 1:37 PM EST Plan of Treatment Upcoming Encounters Date Type Department Care Team (Late st Contact Info) Description 04/11/2025 9:20 AM EDT Appointment Radiology Department [address] [address] Health Maintenance Due Date Last Done Comments Pneumococcal Vaccine: 50+ Years (1 of 1 - PCV) 2012 Zoster Vaccines (1 of 2) 2012 DTaP,Tdap,and Td Vaccines (2 - Td or Tdap) 03/24/2020 03/24/2010 Colorectal Cancer Screening: Stool Based Tests (FOBT/FIT) 07/19/2022 HIV Screening 07/19/2022 Social Influencers of Health Screening 07/19/2022 Cervical Cancer Screening: Pap Smear 01/09/2024 01/08/2021 COVID-19 Vaccine ( season) 2024 10/17/2021, 10/04/2020, 09/13/2020 Depression Screening 08/10/2024 Influenza Vaccine (#1) 2025 05/04/2020 Breast Cancer Screening 04/05/2026 04/05/20 24, 04/05/2024, 03/30/2023, Additional history exists Cholesterol Screening (Lipid Panel) 06/23/2027 06/23/2022 RSV Immunization Adult Patients (1 - 1-dose 75+ series) 2037 Hepatitis C Screening Completed 11/21/2013 HIB Vaccines Aged Out No longer eligi ble based on patient's age to complete this topic HPV Vaccines Aged Out No longer eligi ble based on patient's age to complete this topic Hepatitis A Vaccines Aged Out No long er eligible based on patient's age to complete this topic Hepatitis B Vaccines Aged Out No long er eligible based on patient's age to complete this topic IPV Vaccines Aged Out No longer eligi ble based on patient's age to complete this topic MMR Vaccines Aged Out No longer eligi ble based on patient's age to complete this topic Meningococcal ACWY Vaccine Aged Out N o longer eligible based on patient's age to complete this topic Meningococcal B Vaccine Aged Out No l onger eligible based on patient's age to complete this topic RSV Immunization Patients Under 20 months Aged Out No longer eligible based on patient's age to complete this topic Varicella Vaccines Aged Out No longer eligible based on patient's age to complete this topic Procedures Procedure Name Priority Date/Time Associated Diagnosis Comments SCREENING MAMMOGRAPHY BI 2-VIEW BREAST INC CAD Routine 04/05/2024 8:41 AM EDT Encounter for screening mammogram for malignant neoplasm of breast LIPID PANEL Routine 06/23/2022 HM PAP SMEAR Routine 01/08/2021 HM HEPATITIS C SCREENING Routine 11/21/2013 from Last 3 Months or Most Recently Relevant to Health Maintenance Results * SCREENING MAMMOGRAPHY BI 2-VIEW BREAST INC CAD (04/05/2024 8:41 AM EDT) Anatomical Region Laterality Modality Radiographic Shruti ging 03/30/2023 1:38 PM EDT Narrative 04/06/2024 11:46 AM EDT This is a summary report. The complete report is available in the patient's medical record. If you cannot access the medical record, please contact the sending organization for a detailed fax or copy. BILATERAL 3D DIGITAL SCREENING MAMMOGRAM History: Routine screening. No current breast complaints. Family history of breast cancer in aunt Comparison: Multiple priors dating back to 03/15/2020 Technique: Bilateral full-field digital 3D mammography was performed using standard CC and MLO projections CAD was used to evaluate this mammogram. Findings: Density: The breasts are heterogeneously dense which may obscure small masses-C RIGHT: No suspicious masses, groups of microcalcification or areas of architectural distortion identified. Stable typically benign parenchymal asymmetries LEFT: No suspicious masses, groups of microcalcifications or areas of architectural distortion identified. Stable typically benign parenchymal asymmetries IMPRESSION: : 1. No mammographic evidence of malignancy. BI-RADS Category 2 benign findings Recommendation: Routine annual screening mammography is recommended Procedure Note Robson Mcginnis MD - 05/25/2024 This is a summary report. The complete report is available in thepatient's medical record. If you cannot access the medical record, pleasecontact the sending organization for a detailed fax or copy. BILATERAL 3D DIGITAL SCREENING MAMMOGRAM History: Routine screening. No current breast complaints. Family historyof breast cancer in aunt Comparison: Multiple priors dating back to 03/15/2020 Technique: Bilateral full-field digital 3D mammography was performed usingstandard CC and MLO projections CAD was used to evaluate this mammogram. Findings: Density: The breasts are heterogeneously dense which may obscure smallmasses-C RIGHT: No suspicious masses, groups of microcalcification or areas ofarchitectural distortion identified. Stable typically benign parenchymalasymmetries LEFT: No suspicious masses, groups of microcalcifications or areas ofarchitectural distortion identified. Stable typically benign parenchymalasymmetries IMPRESSION: : 1. No mammographic evidence of malignancy. BI-RADS Category 2 benign findings Recommendation: Routine annual screening mammography is recommended Kike Peters MD IMG XR PROCEDURES Final Result * (ABNORMAL) Lipid panel (06/23/2022) LDL/HDL Ratio 2 0 - 4 Triglycerides 61 0 - 150 mg/dL Cholesterol 253(A) 0 - 200 mg/dL HDL 120 >=40 mg/dL LDL Cholesterol 121(A) 0 - 100 mg/dL Blood Venous blood specimen / Unknown Historical Provider LAB BLOOD ORDERABLES Loreta l Result * Pap Smear (01/08/2021) Pap smear No Interpretation , Abstracted Historical Provider HEALTH MAINTENANCE Final Result * Hepatitis C Screening (11/21/2013) Hepatitis C Screening Abstracted Historical Provider HEALTH MAINTENANCE Final Result from Last 3 Months or Most Recently Relevant to Health Maintenance Insurance [facility] Care Teams Non Profit Director Relationship Specialty Start Date End Date Janneth Marrero MD [address] [place] [id number] PCP - General Internal Medicine 05/30/21
--- OUTSIDE RECORDS SUMMARY | 2025-03-28 12:13 | XMS_ITS | Patient Health Record ---
Author Organization [facility] leia Rochelle Address [address] [place] [address] Care Team Providers Care Ice Cream Vendor Name Role Phone FranYarathaddeus Primary Care Provider Addi Walters Unavailable [phone] Allergies Allergen (clinical drug ingredient) Drug/Non Drug Allergy documented on EMR Reaction Allergy Type Onset Date Status amoxicillin Amoxicillin Unknown Drug Allergy Act mary jo clindamycin Clindamycin HCl vomiting, diareah, stomach pain Drug Allergy Active Reason For Referral No Information Medications Medication SIG (Take, Route, Frequency, Duration) Notes Start Date End Date Status Voltaren 1 % as directed Externally Active Advil PRN Active Physical Therapy . . . 2-3x/week; Durat ion: 3-4 weeks 07/12/2020 Active Diclofenac Sodium 50 MG 1 tablet Orally Twice a day; Duration: 30 day(s) 11/08/2020 Active Feldene 20 MG 1 capsule with food Orally Once a day; Duration: 30 day(s) 05/03/2020 Not-Taking Aspirin PRN Not-Taking ibuprofen Active Norethindrone-Eth Estradiol 0.5-2.5 MG-MCG 1 tablet Orally Once a day; Duration: 30 day(s) Active Social History Tobacco Use: Social History Observation Description Date Details (start date - stop date) Never Smoker NA - NA Tobacco Use/Smoking Question Answer Notes Are you a: nonsmoker Alcohol Screen Question Answer Notes Did you have a drink containing alcohol in the p ast year? No Points 0 Interpretation Negative Tobacco use other than smoking: Question Answer Notes Are you an other tobacco user? No Problems Problem Type SNOMED Code ICD Code Onset Dates Problem Status W/U Status Risk Notes Problem Acquired hallux valgus (62834467) Hallux valgus (acquired), left foot (M20.12) Active confirmed Problem Acquired hallux valgus (59218365) Hallux valgus (acquired), right foot (M20.11) Active confirmed Encounters Encounter Location Date Provider Diagnosis [facility] [place] [address] [place] [address] 05/19/2024 Addi Henderson Assessments Encounter Date Diagnosis (ICD Code) Assessment Notes Treatment Notes Treatment Clinical Notes Section Notes 05/19/2024 MRI_ interstitial intra substance partial tearing noted plantar fascia no measurable defect Plan Of Treatment Pending Test Test Name Order Date MRI : Ankle, left 09/20/2020 Nail Panel 05/03/2020 Next Appt Details Provider Name:Cr Oneil , 05/09/2025 10:45:00 AM, [address] [place] [address], [phone], Insurance Providers Payer Name Payer Address Payer Phone Subscriber Number Group Number Insured Name Patient Relationship to Insured Coverage Start Date Coverage End Date [facility] [address] [place] [address] [id number] Alexijadeluiza romEloisa Self - patient is the insured Medical (General) History Medical History History ICD Code Fibromyalgia Measles Chicken pox knee injury Surgical History Surgery Date(Month/Year)
== END 2025-03-28 11:53 | disposition home or self-care (01) ==
LOC: HO.HMCH 10:45
PROVIDERS: PCP Internal Medicine; Visit Provider Internal Medicine
DX: Z00.00 Encounter for general adult medical examination without abnormal findings (principal); J45.909 Unspecified asthma, uncomplicated; E78.00 Pure hypercholesterolemia, unspecified; N30.10 Interstitial cystitis (chronic) without hematuria; Z13.9 Encounter for screening, unspecified

== ENCOUNTER → 2025-03-28 10:44 | Outpatient (BNVA) | payer OTHER, SELFPAY | PROVIDERS: PCP Internal Medicine; Visit Provider Internal Medicine | DX: Z00.00 Encounter for general adult medical examination without abnormal findings (principal); E78.00 Pure hypercholesterolemia, unspecified; J45.909 Unspecified asthma, uncomplicated; N30.10 Interstitial cystitis (chronic) without hematuria; R30.0 Dysuria; Z87.442 Personal history of urinary calculi | CPT/HCPCS: 81003; 96127 ==

== ENCOUNTER 2025-04-27 09:16 | Outpatient (AMB) | payer OTHER, SELFPAY ==
--- OUTSIDE RECORDS SUMMARY | 2024-05-19 04:30 | XMS_ITS ---
Author Organization [facility] Address [address] [place] [address] Care Team Providers Care Pharmacy Clerk Name Role Phone Kike Peters Primary Care Provider Addi Walters [phone] REASON FOR VISIT PCP: 02/2021, Heel pain, Foot pain Medications Medication SIG (Take, Route, Frequency, Duration) Notes Start Date End Date Status Voltaren 1 % as directed Externally Active Encounters Encounter Location Date Provider Diagnosis [facility] [address] [place] [address] 05/19/2024 Addi Henderson Hallux limitus of right foot M20.5X1 ; [...] 2 Months, Reason: Provider Name:Cr Oneil , 05/09/2025 10:45:00 AM, [address] [place], [address], Progress Notes * Eloisa IBARRADOB: 3 (64 yo F)Acc No.[id number]:05/19/2024 Progress Note Patient: Eloisa HERNÁNDEZ Provider: Twyla Henderson DPM :1960 A ge:63 Y S ex:Female Date:05/19/2024 Address:[address] [place], [place] [id number] Pcp:Kike Peters Subjective: * Chief Complaints: * 1 . PCP: 02/2021. 2. Heel pain. 3. Foot pain. * HPI: G reat toe joint pain: Nature: a karina sharp. Location: [facility] foot. Duration: s everal weeks. Onset/Cause: s udden. Course: i ntermittent. Aggrevated: s hoes standing/walking any pressure. Treatments: k -tape. S kin problems: Nature: d iscolored. Location: [facility] , 1[facility]. Duration: s everal years. Course: w orse. * ROS: G eneral/Constitutional: Nausea d enies, [...] ardiovascular: Pacemaker d enies, denies, denies. M BULB BRANDER d enies, denies, denies. W PW d [...] enies, denies, denies. P odiatric: Comments S [facility] for comments. I nteg.: Solis d enies, [...] Twyla Henderson DPM Date: Generated for Ayanna beauchamp/Farideh/eTtiffsmitting on: 0 04/27/2025 10:44 AM EDT History and Physical Notes * HPI (History [...]
--- NOTE | 2025-04-27 09:16 | MHC.PC.OV ---
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: No Allergies penicillin V Allergy (Unknown, Verified 04/27/25 09:17) Unknown Penicillins (PCN) Allergy (Unknown, Verified 04/27/25 09:17) UNKNOWN Iodinated Contrast Media Adverse Reaction (Intermediate, Verified 04/27/25 09:17) Back Pain Clindamycin Palmitate HCl Allergy (Mild, Uncoded 03/28/25 10:50) rash Medication List - Last Reconciled 04/27/25 by Nick Coppola MD albuterol sulfate 90 mcg/actuation (Ventolin HFA) 2 puffs inhalation Q6H PRN amoxicillin-pot clavulanate 500-125 mg (Augmentin) 1 tab PO BID 20 days estradiol-norethindrone acet 0.05-0.14 mg/24 hr (CombiPatch) 1 patch transdermal 2XW ibuprofen 200 mg PO Q6H PRN Tobacco use date assessed: 03/28/25 Dental Screening Dental Screen Date: 04/27/25 Did you have a dental visit in the last 12 months?: Yes Did you have a dental problem in the last 6 months where you did not have access to dental care?: No Was dental information given to patient?: Patient has dentist HPI HPI Comments History of Present Illness Details 64 yo with known sinus problem (follows with ENT) who called (via telehealth) for worsening sinus infection. The patient reports pain, on her left side of the face associated with pressure, congestion and mild dizziness. She was rescribed Zpak and methylprednisolone. She reports not taking methylprednisolone and she has been on the Z fatou for one week with no improvement. The patient has reported history of penicillin allergy. However she reported that the allergy was mostly nausea and that she never had any anaphylactic reaction or any rash secondary to this medication or any other medication. Patient reports taking Flonase Zyrtec and she does not feel that those has been helping her with her current symptoms. [facility] Medical History Sinus congestion Fibromyalgia Screening for colon cancer History of renal calculi Right flank pain Back pain Chest discomfort SOB (shortness of breath) Plantar fasciitis Upper respiratory tract infection Adhesive capsulitis of right shoulder Myofascial pain on right side Rotator cuff impingement syndrome of right shoulder Family History Mother CVA (cerebral vascular accident) Maternal Aunt Breast cancer Maternal Uncle Lung cancer Social History Housing: House Alcohol intake: never Patient Tobacco Use Status: Never used Tobacco Tobacco use type: Cigarette e-Cigarette/Vaping Use: Never Used Second Hand Smoke Exposure: No service: No Current occupational status: employed 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 Yaya Rojas, Karie Ortega, Willi Pedersen and colleagues, with an educational cindy from [employer]. Review of Systems Const Details: Not done. Physical exam (Primary Care) Tobacco/Smoking Status: Tobacco use Status Tobacco use date assessed 03/28/25 04/27/25 09:20 Patient Tobacco Use Status Never used Tobacco 04/27/25 09:20 Tobacco use type Cigarette 04/27/25 09:20 e-Cigarette/Vaping Use Never Used 04/27/25 09:20 Thrive Assessment: Date of Thrive Assessment Date Thrive assessed 03/28/25 04/27/25 09:20 Const Other: Not done as it was a phone appointment. Telehealth Telehealth Telehealth Platform: Telephone Location of provider rendering services: practice address Location of patient: address on file Patient Identification confirmed using: Name, : Yes Telehealth method: voice only Patient verbally consented to treatment: Yes Patient verbally consented to billing insurance company: Yes Patient informed of any privacy concerns related to visit: Yes Minutes spent on Phone/Video with Pt.: 12 Coding Level of Care Code Tele Est Pt Level 3 (75976) Diagnoses Sinus congestion R09.81 Assessment & Plan Assessment & Plan (1) Sinus congestion: Code(s): R09.81 - Nasal congestion Category: Medical Plan: Augmentin BID for 10 days. Continue Flonase and Zyrtec. She is waiting for new ENT specialist so she can schedule appointemtn with them. Advised on taking the methylprednisolone as prescribed by her ENT. She was worried about muscle wekness 2/2 steroid. I explained to her that this is usually on the residential use. Allergy to penicillin caused mainly nausea in the past. Plan Augmentin. Methylprednisolone. She will schedule appointment with ENT. Continue Zyrtec and Flonase. Medications: New amoxicillin-pot clavulanate 500-125 mg (Augmentin) 1 tab PO BID 40 tabs 0RF 20 days
--- OUTSIDE RECORDS SUMMARY | 2025-04-27 10:45 | XMS_ITS | Patient Health Record ---
Author Organization [facility] leia Venango Address [address] [place] [address] Care Team Providers Care Epic Manager Name Role Phone FranYarathaddeus Primary Care Provider Addi Walters Unavailable [phone] Allergies Allergen (clinical drug ingredient) Drug/Non Drug [...] Status Risk Notes Problem Acquired hallux valgus (70199033) Hallux valgus (acquired), left foot (M20.12) Active confirmed Problem Acquired hallux valgus (19047525) Hallux valgus (acquired), right foot (M20.11) Active confirmed Encounters Encounter Location Date Provider Diagnosis [facility] [place] [address] [place] [address] 05/19/2024 Addi Henderson Assessments Encounter Date Diagnosis (ICD Code) Assessment Notes Treatment Notes Treatment Clinical Notes Section Notes 05/19/2024 MRI_ interstitial intra substance partial tearing noted plantar fascia no measurable defect Plan Of Treatment Pending Test Test Name Order Date MRI : Ankle, left 09/20/2020 Nail Panel 05/03/2020 Next Appt Details Provider Name:Cr Oneil , 05/09/2025 10:45:00 AM, [address] [place] [address], [phone], Insurance Providers Payer Name Payer Address Payer Phone Subscriber Number Group Number Insured Name Patient Relationship to Insured Coverage Start Date Coverage End Date [facility] [address] [place] [address] [id number] Alexijadeluiza romEloisa Self - patient is the insured Medical (General) History Medical History History ICD Code Fibromyalgia Measles Chicken pox knee injury Surgical History Surgery Date(Month/Year)
--- OUTSIDE RECORDS SUMMARY | 2025-04-27 10:45 | XMS_ITS | Clinical Summary ---
Author Organization [address] Address [address] [place] [phone] Phone Care Team Providers Care Hot Bread Baker Name Role Phone Janneth Marrero MD Primary Care Provider [phone] Allergies Active Allergy Reactions Criticality Noted Date [...] Care Team (Late st Contact Info) Description 05/05/2025 8:50 AM EDT Appointment Radiology Department [address] [address] Health Maintenance Due Date Last Done Comments Pneumococcal Vaccine: 50+ Years (1 of 1 - PCV) 2012 Zoster Vaccines (1 of 2) 2012 DTaP,Tdap,and Td Vaccines (2 - Td or Tdap) 03/24/2020 03/24/2010 Colorectal Cancer Screening: Stool Based Tests (FOBT/FIT) 07/19/2022 HIV Screening 07/19/2022 Social Influencers of Health Screening 07/19/2022 Cervical Cancer Screening: Pap Smear 01/09/2024 01/08/2021 Depression Screening 08/10/2024 COVID-19 Vaccine ( season) 2025 10/17/2021, 10/04/2020, 09/13/2020 Influenza Vaccine (#1) 2025 05/04/2020 Breast Cancer [...] Loreta l Result * Pap Smear (01/08/2021) Pathologist [facility] Pap smear No Interpretation , Abstracted Historical Provider HEALTH MAINTENANCE Final Result * Hepatitis C Screening (11/21/2013) Pathologist [facility] Hepatitis C Screening Abstracted Historical Provider HEALTH MAINTENANCE Final Result from Last 3 Months or Most Recently Relevant to Health Maintenance Insurance [facility] Care Teams Hot Bread Baker Relationship Specialty Start Date End Date Janneth Marrero MD [address] [place], [place] PCP - General Internal Medicine 05/30/21
== END 2025-04-27 09:59 | disposition home or self-care (01) ==
LOC: HO.HMCH 09:16
PROVIDERS: PCP Internal Medicine; Visit Provider Internal Medicine
DX: R09.81 Nasal congestion (principal)

== ENCOUNTER 2025-05-16 10:37 | Outpatient (REF) | payer OTHER, SELFPAY ==
--- OUTSIDE RECORDS SUMMARY | 2024-05-19 04:30 | XMS_ITS ---
Author Organization [facility] Address [address] [place] [address] Care Team Providers Care Green Meat Packer Name Role Phone Kike Peters Primary Care Provider UnavailCr Fuller Unavailable [phone] Addi Campbell Unavailable [phone] REASON FOR VISIT PCP: 02/2021, Heel pain, Foot pain Medications Medication SIG (Take, Route, Frequency, Duration) Notes Start Date End Date Status Voltaren 1 % as directed Externally Active Encounters Encounter Location Date Provider Diagnosis [facility] [address] [place] [address] 05/19/2024 Addi Campbell Hallux limitus of right [...] 2 Months, Reason: Provider Name:Cr Oneil , 05/26/2025 10:00:00 AM, [address] [place], [address], Progress Notes * Eloisa IBARRADOB: 3 (64 yo F)Acc No.[id number]:05/19/2024 Progress Note Patient: Eloisa HERNÁNDEZ Provider: Twyla Henderson DPM :1960 A ge:63 Y S ex:Female Date:05/19/2024 Address:[address] [place], [place] [phone] Pcp:Kike Peters Subjective: * Chief Complaints: * 1 . PCP: 02/2021. 2. Heel pain. 3. Foot pain. * HPI: G reat toe joint pain: Nature: a karina sharp. [facility] Duration: s everal weeks. Onset/Cause: s udden. Course: i ntermittent. Aggrevated: s hoes standing/walking any pressure. Treatments: k -tape. S kin problems: Nature: d iscolored. Location: [facility] , . Duration: s everal years. Course: [...] ardiovascular: Pacemaker d enies, denies, denies. M RAILWAY HEAD TENDER d enies, denies, denies. W PW d [...] enies, denies, denies. P odiatric: Comments S [facility] for comments. I nteg.: Solis d [...] DPM Date: Generated for Ayanna beauchamp/Farideh/Anushaitting on: 12:52 PM EDT History and Physical Notes * HPI [...]
--- OUTSIDE RECORDS SUMMARY | 2025-05-09 06:45 | XMS_ITS ---
Author Organization [facility] Address [address] [place] [phone] Care Team Providers Care Maintenance Painter Name Role Phone Kike Peters Primary Care Provider Unavailabl Cr Alvarez Unavailable [phone] Encounters Encounter Location Date Provider Diagnosis [address] [address] 05/09/2025 Cr Oneil Plan Of Treatment Next Appt Details Provider Name:Cr Oneil , 05/26/2025 10:00:00 AM, [address] [place] [address], [phone], Progress Notes * Eloisa IBARRADOB: 3 (64 yo F)Acc No.[id number]:05/09/2025 Progress Note Patient: Eloisa HERNÁNDEZ Provider: Helena Oneil DPM :1960 A ge:64 Y S ex:Female Date:05/09/2025 Address:[address] [place], [place] [phone] Pcp:Kike Peters Subjective: * Chief Complaints: * [...] 05/09/2025 Generated for Ayanna beauchamp/Farideh/Nara on: 1 12:52 PM EDT
[2025-05-16 11:03] LABS: MANUAL DIFF FLAG NO
[2025-05-16 11:54] LABS: Hematocrit 39.6 % (37.0-47.0); Hemoglobin 13.7 g/dl (12.0-16.0); Imm Gran Abs Auto 0.01 X10*3/uL (0.00-0.03); Imm Gran Pct Auto 0.2 % (0.0-0.4); Lymphocytes Absolute Auto 1.2 X10*3/uL (1.2-4.9); Mean Corpuscular HGB Conc 34.6 g/dl (31.0-35.0); Mean Corpuscular Hemoglobin 31.6 pg (27.0-33.0); Mean Corpuscular Volume 91.2 fL (80.0-98.0); NRBC Abs Auto 0.000 X10*3/uL (0.0-0.012); NRBC Pct Auto 0.0 /100WBC (0.0-0.2); Platelet Count 223 X10*3/uL (160-400); Red Blood Count 4.34 X10*6/uL (4.20-5.50); White Blood Count 4.1 X10*3/uL (4.8-10.8)
[2025-05-16 11:56] LABS: Appearance Urine Clear; Glucose Urine UA Negative (Negative); PH 5.5 (5.0-9.0); Specific Gravity - Urine 1.020 (1.005-1.025); UMIC TRIGGER UACC YES
[2025-05-16 12:31] LABS: Alanine Aminotransferase 18 U/L (0-31); Albumin Level 5.1 g/dL (3.5-5.0); Alkaline Phosphatase 44 U/L (39-117); Anion Gap 13 (12-20); Aspartate Amino Transferase 26 U/L (5-31); Blood Urea Nitrogen 9 mg/dL (9-16); Calcium 9.9 mg/dL (8.4-10.2); Carbon Dioxide 27 mmol/L (22-29); Chloride 107 mmol/L (96-108); Cholesterol 268 mg/dL (<200); Estimated Glomerular Filt Rate > 60; HDL Cholesterol 87 mg/dL (>40); Potassium 3.9 mmol/L (3.3-5.1); Sodium 143 mmol/L (135-145); Total Protein 7.1 g/dL (6.5-8.0); Triglycerides 61 mg/dL (<150)
[2025-05-16 12:51] LABS: Free T4 (Free Thyroxine) 1.02 ng/dL (0.71-1.85); Thyroid Stimulating Hormone 0.62 uIU/mL (0.32-4.0)
--- OUTSIDE RECORDS SUMMARY | 2025-05-16 12:52 | XMS_ITS | Patient Health Record ---
Author Organization [facility] Address [address] [place] [address] Care Team Providers Care Industrial Gas Fitter Helper Name Role Phone Fran Yarathaddeus Primary Care Provider UnavailCr Fuller Unavailable [phone] Addi Campbell Unavailable [phone] Allergies Allergen (clinical drug ingredient) Drug/Non Drug [...] Status Risk Notes Problem Acquired hallux valgus (07409053) Hallux valgus (acquired), left foot (M20.12) Active confirmed Problem Acquired hallux valgus (18369537) Hallux valgus (acquired), right foot (M20.11) Active confirmed Encounters Encounter Location Date Provider Diagnosis [facility] [address] [place] [address] 05/19/2024 Addi Campbell [facility] [address] 05/02/2025 Cr Oneil Assessments Encounter Date Diagnosis (ICD Code) Assessment Notes Treatment Notes Treatment Clinical Notes Section Notes 05/19/2024 MRI_ interstitial intra substance partial tearing noted plantar fascia no measurable defect Plan Of Treatment Pending Test Test Name Order Date MRI : Ankle, left 09/20/2020 Nail Panel 05/03/2020 Next Appt Details Provider Name:Cr Oneil , 05/26/2025 10:00:00 AM, [address] [place] [address], [phone], Insurance Providers Payer Name Payer Address Payer Phone Subscriber Number Group Number Insured Name Patient Relationship to Insured Coverage Start Date Coverage End Date [facility] [address] [place] [id number] Eloisa Garcia Self - patient is the insured Medical (General) History Medical History History ICD Code Fibromyalgia Measles Chicken pox knee injury Surgical History Surgery Date(Month/Year)
--- OUTSIDE RECORDS SUMMARY | 2025-05-16 12:52 | XMS_ITS | Clinical Summary ---
Author Organization [address] Address [address] [place] [address] Phone Care Team Providers Care Managing Partner Name Role Phone Janneth Marrero MD Primary Care Provider [phone] Allergies Active Allergy Reactions Criticality Noted Date [...] Vitamin D deficiency 07/02/2010 Interstitial cystitis 01/21/2010 Encounters Date Type Department Care Team Description 05/05/2025 8:45 AM EDT - 05/05/2025 11:59 PM EDT Hospital Encounter Radiology Department - [address] [phone] Encounter for screening mammogram for breast cancer Discharge Disposition: Home or Self Care from Last 3 Months Immunizations Immunization Administration Dates Next Due Influenza trivalent, 0.5mL, [...] Sexual Orientation Not on file Obstetrics History Para Term AB IAB SAB Ectopic Multiple Livin g Live Births 0 0 0 Last Filed Vital Signs Vital Sign Reading [...] 10/08/2022 1:37 PM EST Plan of Treatment Health Maintenance Due Date Last Done Comments [...] Vaccine (#1) 2025 05/04/2020 Breast Cancer Screening 05/05/2027 05/05/20, 04/05/2024, 04/05/2024, Additional history exists Cholesterol Screening (Lipid Panel) [...] Procedure Name Priority Date/Time Associated Diagnosis Comments MG MAMMO DIGITAL SCREENING W LUIS MIGUEL BILAT Routine 05/05/2025 8:57 AM EDT Encounter for screening mammogram for breast cancer LIPID PANEL Routine 06/23/2022 HM PAP SMEAR Routine 01/08/2021 HEPATITIS C SCREENING Routine 11/21/2013 from Last 3 Months or Most Recently Relevant to Health Maintenance Results * MG Mammo Digital Screening w Luis Miguel bilat (05/05/2025 8:57 AM EDT) Anatomical Region Laterality Modality Breast Bilateral Mammography 05/08/2025 6:15 PM EDT Impressions 05/08/2025 6:16 PM EDT No mammographic evidence of malignancy. BREAST DENSITY: B - There are scattered areas of fibroglandular density. BI-RADS CATEGORY: 1 - NEGATIVE RECOMMENDATION: Screening bilateral mammogram is recommended in 1 year. MAMMO LOCATION: [facility], [address] [place] [address], [phone], . -------- FINAL REPORT -------- Dictated By: Nikole Morales Dictated Date: 05/08/2025 18:15 ET Assigned Physician: Nikole Morales Reviewed and Electronically Signed By: Nikole Morales Signed Date: 05/08/2025 18:16 ET Workstation ID: [id number] Transcribed By: Self Edit Transcribed Date: 05/08/2025 18:15 ET Narrative 05/08/2025 6:16 PM EDT EXAM: Screening Mammogram CLINICAL: 64 years old, Female, routine annual exam. COMPARISON: 04/05/2024 and as far back as 03/18/2021 TECHNIQUE: Bilateral MLO and CC views were obtained digitally with 3-D mammogram (digital breast tomosynthesis). Computer-aided detection was utilized in evaluation of this exam (CAD). FINDINGS: No new suspicious mass, architectural distortion, or suspicious calcifications. Procedure Note Nikole Morales MD - 05/08/2025 EXAM: Screening Mammogram CLINICAL: 64 years old, Female, routine annual exam. COMPARISON: 04/05/2024 and as far back as 03/18/2021 TECHNIQUE: Bilateral MLO and CC views were obtained digitally with 3-Dmammogram (digital breast tomosynthesis). Computer-aided detection wasutilized in evaluation of this exam (CAD). FINDINGS: No new suspicious mass, architectural distortion, or suspiciouscalcifications. IMPRESSION: No mammographic evidence of malignancy. BREAST DENSITY: B - There are scattered areas of fibroglandular density. BI-RADS CATEGORY: 1 - NEGATIVE RECOMMENDATION: Screening bilateral mammogram is recommended in 1 year. MAMMO LOCATION: [facility], [address] [place] [address], [phone], . -------- FINAL REPORT -------- Dictated By: Nikole Morales Dictated Date: 05/08/2025 18:15 ET Assigned Physician: Nikole Morales Reviewed and Electronically Signed By: Nikole Morales Signed Date: 05/08/2025 18:16 ET Workstation ID: [id number] Transcribed By: Self Edit Transcribed Date: 05/08/2025 18:[address] [facility] Kike Peters MD IMG BI PROCEDURES Final Result * (ABNORMAL) Lipid panel (06/23/2022) Pathologist [facility] LDL/HDL Ratio 2 0 - 4 Triglycerides 61 0 - 150 mg/dL Cholesterol 253(A) 0 - 200 mg/dL HDL 120 >=40 mg/dL LDL Cholesterol 121(A) 0 - 100 mg/dL Blood Venous blood specimen / Unknown Result [facility] Historical Provider LAB BLOOD ORDERABLES Loreta l Result * Pap Smear (01/08/2021) Pathologist [facility] Pap smear No Interpretation , Abstracted Historical Provider HEALTH MAINTENANCE Final Result * Hepatitis C Screening (11/21/2013) Pathologist [facility] Hepatitis C Screening Abstracted Historical Provider HEALTH MAINTENANCE Final Result from Last 3 Months or Most Recently Relevant to Health Maintenance Insurance [facility] Care Teams Managing Partner Relationship Specialty Start Date End Date Janneth Marrero MD [address] [place] [address] PCP - General Internal Medicine 05/30/21
[2025-05-16 12:55] LABS: Vitamin B12 1072 pg/mL (200-900)
[2025-05-16 13:14] LABS: Folate 13.2 ng/mL (> or = 4.0)
== END 2025-05-16 10:38 | disposition home or self-care (01) ==
LOC: HO.LAB 10:37
PROVIDERS: PCP Internal Medicine; Visit Provider Internal Medicine
DX: E78.00 Pure hypercholesterolemia, unspecified (principal); J45.909 Unspecified asthma, uncomplicated; Z13.21 Encounter for screening for nutritional disorder
CPT/HCPCS: 36415; 80053; 80061; 81001; 82306; 82607; 82672; 82746; 84144; 84439; 84443; 85025

== ENCOUNTER 2025-07-18 10:25 | Outpatient (REF) | payer OTHER, SELFPAY ==
--- NOTE | ~2025-07-18 | XR_ITS ---
EXAMINATION: XR SINUSES CLINICAL INFORMATION: J45.909 - Unspecified asthma, uncomplicated COMPARISON: July 31, 2022. TECHNIQUE: AP, Carrillo, axial and lateral projection. FINDINGS: Poor pneumatization of the frontal sinuses. No air-fluid levels. No acute cortical disruption. XR/XR sinus min 3V IMPRESSION: No air-fluid levels paranasal sinuses. Electronically signed by: Avelino Brewer MD 07/18/2025 11:07 AM GRABIEL
== END 2025-07-18 10:26 | disposition home or self-care (01) ==
LOC: HO.XRAY 10:25
PROVIDERS: PCP Internal Medicine; Visit Provider Internal Medicine
DX: J45.909 Unspecified asthma, uncomplicated (principal)
CPT/HCPCS: 70220

== ENCOUNTER → 2025-07-18 10:30 | Outpatient (BNV) | payer OTHER, SELFPAY | PROVIDERS: PCP Internal Medicine; Visit Provider Radiology Diagnostic Radiology | DX: J45.909 Unspecified asthma, uncomplicated (principal) | CPT/HCPCS: 70220 ==

== ENCOUNTER 2025-07-26 14:00 | Outpatient (AMB) | payer OTHER, SELFPAY ==
--- OUTSIDE RECORDS SUMMARY | 2024-05-19 03:30 | XMS_ITS ---
Author Organization [facility] Address [address] [place] [address] Care Team Providers Care Manager Training Name Role Phone Kike Peters Primary Care Provider UnavailCr Fuller Unavailable [phone] Addi Campbell Unavailable [phone] REASON FOR VISIT PCP: 02/2021, Heel pain, Foot pain Medications Medication SIG (Take, Route, Frequency, Duration) Notes Start Date End Date Status Voltaren 1 % as directed Externally Active Encounters Encounter Location Date Provider Diagnosis [facility] [address] [place] [address] 05/19/2024 Addi Campbell Hallux limitus of right foot M20.5X1 ; Tinea unguium B35.1 and Pain in left toe(s) M79.675 Assessments Encounter Date Diagnosis (ICD Code) Assessment Notes Treatment Notes Treatment Clinical Notes Section Notes 05/19/2024 Hallux limitus of right foot (ICD-10 - M20.5X1) MRI_ interstitial intra substance partial tearing noted plantar fascia no measurable defect 05/19/2024 Tinea unguium (ICD-10 - B35.1) MRI_ interstitial intra substance partial tearing noted plantar fascia no measurable defect 05/19/2024 Pain in left toe(s) (ICD-10 - M79.675) MRI_ interstitial intra substance partial tearing noted plantar fascia no measurable defect Plan Of Treatment Medication Medication Name Sig Start Date Stop Date Notes Voltaren 1 % as directed Externally Next Appt Details Follow Up: 2 Months, Reason: Provider Name:Cr Oneil , 07/13/2026 11:00:00 AM, [address] [place], [address], Progress Notes * Eloisa IBARRADOB: 3 (64 yo F)Acc No.[id number]:05/19/2024 Progress Note Patient: Eloisa HERNÁNDEZ Provider: Twyla Henderson DPM :1960 A ge:63 Y S ex:Female Date:05/19/2024 Address:[address] [place], [place] [id number] Pcp:Kike Peters Subjective: * Chief Complaints: * 1 . PCP: 02/2021. 2. Heel pain. 3. Foot pain. * HPI: G reat toe joint pain: Nature: a karina sharp. [facility] Duration: s everal weeks. Onset/Cause: s udden. Course: i ntermittent. Aggrevated: s hoes standing/walking any pressure. Treatments: k -tape. S kin problems: Nature: d iscolored. Location: [facility] , . Duration: s everal years. Course: w joel. * ROS: G eneral/Constitutional: Nausea d enies, denies, denies. V omiting d enies, denies, denies. H jonathan Thirst d enies, denies, denies. L oss appetite d enies, denies, denies, denies. C hills d enies, denies, denies, denies. F atigue d enies, denies, denies. F ever d enies, denies, denies, denies. N ight Sweats d enies, denies, denies. U nexplained weight loss d enies, denies, denies. U nexplained weight gain d enies, denies. O phthalmologic: Blurred vision d enies, denies. R ed eye d enies, denies. H EENTM: Dentures d enies, denies, denies. D izziness d enies, denies, denies. G lasses/contacts d enies, admits, denies. R etinopathy d enies, denies, denies. B lurred/double vision d enies, denies, denies. T MJ d enies, admits, denies. D ischarge/drainage d enies, denies, denies. I mplants d enies, denies, denies. S ore throat d enies, denies. D ental implants d enies, denies. H lynette of hearing d enies, denies, denies. D ifficulty chewing/swallowing/speaking d enies, denies, denies. N ose bleeds d enies, denies, denies. S ore mouth d enies, denies, denies, denies. S wollen glands d enies, denies. R espiratory: On Oxygen d enies, denies, denies. P neumonia/pleurisy?denies, denies, denies. B ronchitis d enies, denies, denies. E mphysema d enies, denies, denies. C oughing d enies, denies, denies, denies. C ough blood d enies, denies, denies. S hortness of breath d enies, denies, denies, denies. W heezing d enies, denies, denies, denies. C ardiovascular: Pacemaker d enies, denies, denies. M RADIOTELEGRAPH OPERATOR SERVICER d enies, denies, denies. W PW d enies, denies, denies. C HF d enies, denies, denies. H eart attack d enies, denies, denies. S eptal defect d enies, denies, denies. R apid beat denies, denies, denies. C hest pain d enies, denies, denies, denies. A trial Fib.?denies, denies, denies, denies. M urmur/Palpitations d enies, denies, denies. ? G astrointestinal: Hemorrhoids d enies, denies, denies. S tomach/Abdominal pain d enies, denies, denies, denies. D ark blood stool d enies, denies, denies. I rritable bowel d enies, denies, denies. C onstipation d enies, denies, denies. D iarrhea d enies, denies, denies, denies. V omiting d enies, denies. H ematology: Swelling d enies, denies, denies. C lots d enies, denies. V aricose Veins d enies, denies. B ruising d enies, denies, denies. B leeding problem d enies, denies, denies. G enitourinary: Blood urine d enies, denies, denies, denies. F requent/Painfu/urination/bladder control d enies, denies, denies, denies. K idney stones d enies, denies, denies. I nfection (UTI) d enies, denies, denies. N ephropathy d enies, denies, denies. s ex trans dis (STD) d enies, denies. P rostate d enies, denies. ? M usculoskeletal: Hammertoes d enies, denies, denies. B unions d enies, denies, denies. S coliosis/kyphosis d enies. B ack Pain d enies, denies. M uscle Cramps/ Resting d enies, denies. M uscle cramps / walking d enies, denies, denies. Generalized aches and pains d enies, admits, denies. P ainful joints d enies. S wollen joints d enies. W eakness d enies, denies, denies. P odiatric: Comments S [facility] for comments. I nteg.: Solis d enies, denies, denies. S cars d enies, denies, denies. C orns/calluses d enies, denies, denies. I ngrown nails d enies, denies, denies. P ainful nails d enies, denies, denies. O pen Sores d enies, denies. I tching d enies. R ashes d enies, denies, denies, denies. N eurologic: Difficulty sleeping d enies, admits, denies. B ipolar?denies. B rain disorder d enies, denies, denies. N umbness d enies, denies. B alance trouble d enies, denies, denies. C onfusion d enies, denies, denies, denies. Fainting/blackouts d enies, denies, denies. H eadache d enies, denies. T ingling?denies, denies. T remors d enies, denies, denies. * Medical History: Objective: * Vitals: * Examination: G eneral Examination: GENERAL APPEARANCE: p leasant, alert, well nourished, well developed, well hydrated, with good attention to hygene/body habitus, and in no acute distress , alert, well hydrated, in no distress , good attention to hygiene. ORIENTED: p erson,place, and time , person,place, and time.? N eurological: SENSORY: N eurological exam reveals intact sensorium, pain sensation normal, vibration sensation intact, pinprick sensation is normal in the lower extremities, pt denies, anesthesia, burning, paresthesia, tingling, B/L , tingling, burning, anesthesia. TINEL'S COMPRESSION: N egative tarsal tunnel, linus pedis, and medial calcaneal nerves, B/L , negative tarsal tunnel, linus pedis, and medial calcaneal nerves b/l. BABINSKI REFLEX: A bsent, B/L , absent. ? V ascular: DP PULSES (B): 2 /4, B/L , 2/4, B/L. PT PULSES (B): 2 /4, B/L , 2/4, B/L. CAPILLARY FILL TIME: 3 secs. per digit, B/L , 3 secs. per digit, b/l. TROPHIC CONDITION-TEXTURE/ELASTICITY/TURGOR/HAIR GROWTH (B):?normal, B/L , absent. TEMPERTURE GRADIENT (C): w arm to cool, proximal to distal, B/L , warm to cool, proximal to distal. EDEMA (C): n o edema , no edema. D ermatologic: SKIN FINDINGS: S kin exam reveals normal texture, elasticity, and tugor. There are no masses. The interspaces are clear , Skin exam reveals normal texture, elasticity, and tugor. There are no masses, no excrescences. The interspaces are clear.. ? O rthopedic: MUSCLE STRENGTH: 5 /5 all groups in a symmetrical fashion B/L. GAIT ABNORMALITY: p ronated, abducted, B/L , pronated, abducted, b/l. FOOT MORPHOLOGY: P es Planus structure, Semi-rigid, B/L.? BUNION: Dorsally prominent 1st MPJ, (+) Pain on palpation, RIGHT, Limited 1st MPJ Dorsal ROM, Limited 1st MPJ Plantar ROM. DIGITAL DEFORMITIES: D igital contracture, PIPJ, 2-5 B/L, incompl-reducable with WB, or to push-up test, no over, nor underlapping. N ails: NAILS are: Elongated, overgrown, dystrophic, lytic, greater than 3mm thick, discolored and friable with crumbly malodorous subungual debris, TA. ? Assessment: * Assessment: 1. H allux limitus of right foot - M20.5X1 (Primary) 2 . T inea unguium - B35.1 3 . P ain in left toe(s) - M79.675 MRI_ interstitial intra subs tance partial tearing noted plantar fascia no measurable defect. Plan: * Treatment: * Follow Up: 2 Months * Images: * The named appointment provid er may or may not be the originator of this progress note, and it is not deemed complete until electronically signed by the appointment provider. Sign off status: Pending * Provider: Twyla Henderson DPM Date: Generated for Ayanna beauchamp/Farideh/Anushaitting on: 09/26/2024 06:39 PM EST History and Physical Notes * HPI (History of Present Illness) Category Sub-Category Detail Notes Category Not es Great toe joint pain Location: right foot Nature: aching sharp Duration: several weeks Onset/Cause: sudden Course: intermittent Aggrevated: shoes standing/walki ng any pressure Treatments: k-tape Skin problems Nature: discolored Location: Left , 1st Duration: several years Course: worse Examination Category Sub-Category Detail Notes Category Not es Neurological SENSORY: Neurological exa m reveals intact sensorium, pain sensation normal, vibration sensation intact, pinprick sensation is normal in the lower extremities, pt denies, anesthesia, burning, paresthesia, tingling, B/L , tingling, burning, anesthesia BABINSKI REFLEX: Absent, B/L , absent TINEL'S COMPRESSION: Negative tarsal junaid sabine, linus pedis, and medial calcaneal nerves, B/L , negative tarsal tunnel, linus pedis, and medial calcaneal nerves b/l Dermatologic SKIN FINDINGS: Skin exam reveal s normal texture, elasticity, and tugor. There are no masses. The interspaces are clear , Skin exam reveals normal texture, elasticity, and tugor. There are no masses, no excrescences. The interspaces are clear. Orthopedic GAIT ABNORMALITY: pronated, abducted, B/L , pronated, abducted, b/l FOOT MORPHOLOGY: Pes Planus structure , Semi-rigid, B/L BUNION: Dorsally prominent 1 st MPJ, (+) Pain on palpation, RIGHT, Limited 1st MPJ Dorsal ROM, Limited 1st MPJ Plantar ROM DIGITAL DEFORMITIES: Digital contracture , PIPJ, 2-5 B/L, incompl-reducable with WB, or to push-up test, no over, nor underlapping MUSCLE STRENGTH: 5/5 all groups in a symmetrical fashion B/L General Examination GENERAL APPEARANCE: pleasant , alert, well nourished, well developed, well hydrated, with good attention to hygene/body habitus, and in no acute distress , alert, well hydrated, in no distress , good attention to hygiene ORIENTED: person,place, and ti me , person,place, and time Vascular DP PULSES (B): 2/4, B/L , 2/4, B/L PT PULSES (B): 2/4, B/L , 2/4, B/L CAPILLARY FILL TIME: 3 secs. per digit, B/L , 3 secs. per digit, b/l TEMPERTURE GRADIENT (C): warm to cool, p roximal to distal, B/L , warm to cool, proximal to distal TROPHIC CONDITION-TEXTURE/ELASTICITY/TURGOR/HAIR GROWTH (B): normal, B/L , absent EDEMA (C): no edema , no edema Nails NAILS are: Elongated, overg rown, dystrophic, lytic, greater than 3mm thick, discolored and friable with crumbly malodorous subungual debris, TA
--- OUTSIDE RECORDS SUMMARY | 2025-05-09 05:45 | XMS_ITS ---
Author Organization [facility] Address [address] [place] [address] Care Team Providers Care Knapsack Sprayer Name Role Phone Kike Peters Primary Care Provider Unavailabl Cr Alvarez Unavailable [phone] Encounters Encounter Location Date Provider Diagnosis [address] [address] 05/09/2025 Cr Oneil Plan Of Treatment Next Appt Details Provider Name:Cr Oneil , 07/13/2026 11:00:00 AM, [address] [place] [address], [phone], Progress Notes * Eloisa IBARRADOB: 3 (64 yo F)Acc No.[id number]:05/09/2025 Progress Note Patient: Eloisa HERNÁNDEZ Provider: Helena Oneil DPM :1960 A ge:64 Y S ex:Female Date:05/09/2025 Address:[address] [place], [place] [id number] Pcp:Kike Peters Subjective: * Chief Complaints: * * Medical History: Objective: * Vitals: Assessment: Plan: * Treatment: * Images: * The named appointment provid er may or may not be the originator of this progress note, and it is not deemed complete until electronically signed by the appointment provider. Sign off status: Pending * Provider: Helena Oneil DPM Date: 0 05/09/2025 Generated for Ayanna beauchamp/Farideh/Nara on: 1 09/26/2024 06:38 PM EST
--- OUTSIDE RECORDS SUMMARY | 2025-05-26 05:00 | XMS_ITS ---
Author Organization [facility] Address [address] [place] [address] Care Team Providers Care Hearing Health Technician Name Role Phone Kike Peters Primary Care Provider Unavailabl Cr Alvarez Unavailable [phone] Encounters Encounter Location Date Provider Diagnosis [address] [address] 05/26/2025 Cr Oneil Plan Of Treatment Next Appt Details Provider Name:Cr Oneil , 07/13/2026 11:00:00 AM, [address] [place] [address], [phone], Progress Notes * Eloisa IBARRADOB: 3 (64 yo F)Acc No.[id number]:05/26/2025 Progress Note Patient: Eloisa HERNÁNDEZ Provider: Helena Oneil DPM :1960 A ge:64 Y S ex:Female Date:05/26/2025 Address:[address] [place], [place] [phone] Pcp:Kike Peters Subjective: * Chief Complaints: * * Medical History: Objective: * Vitals: Assessment: Plan: * Treatment: * Images: * The named appointment provid er may or may not be the originator of this progress note, and it is not deemed complete until electronically signed by the appointment provider. Sign off status: Pending * Provider: Helena Oneil DPM Date: 1 Generated for Ayanna beauchamp/Farideh/Nara on: 09/26/2024 06:39 PM EST
--- NOTE | 2025-07-26 14:04 | MHC.PC.OV ---
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 Required: No Accompanied by: Self / Same As Patient Allergies penicillin V Allergy (Unknown, Verified 07/26/25 14:04) Unknown Penicillins (PCN) Allergy (Unknown, Verified 07/26/25 14:04) UNKNOWN Iodinated Contrast Media Adverse Reaction (Intermediate, Verified 07/26/25 14:04) Back Pain Clindamycin Palmitate HCl Allergy (Mild, Uncoded 03/28/25 10:50) rash Medication List - Last Reconciled 07/26/25 by Nick Coppola MD albuterol sulfate 90 mcg/actuation (Ventolin HFA) 2 puffs inhalation Q6H PRN cholecalciferol (vitamin D3) 25 mcg PO DAILY estradiol-norethindrone acet 0.05-0.14 mg/24 hr (CombiPatch) 1 patch transdermal 2XW ibuprofen 200 mg PO Q6H PRN Tobacco use date assessed: 03/28/25 Dental Screening Dental Screen Date: 04/27/25 HPI HPI Comments History of Present Illness Details The patient is a 64-year-old female with PMH of chronic sinusitis presenting for follow-up of acute sinusitis flare up. Her symptoms include persistent sinus pressure, postnasal drip, and pain between her eyes, which are now accompanied by a new symptom of pain with ingestion of hot liquids, such as coffee or soup. She also reports headaches. She has a history of being treated by a previous ENT specialist who has since retired, typically with a Z-Zack and steroids. The patient had a tele visit with our office on 04/2025 for the same issue and she was prescribed Abx and steroids which the patient said helped her symptoms but they recently got worse. The patient has a noted allergy to penicillin, but she tolerated amoxicillin when taking it. She also did not finish the steroid course due to muscle pain. She has used Flonase in the past which she does not want to continue. Recent sinus x-rays ordered by Dr. Peters revealed poor pneumatization of the frontal sinuses. A dental evaluation ruled out a tooth-related cause for her pain. She is having difficulty scheduling an appointment with a new ENT specialist due to long wait times and an upcoming change in her insurance. [facility] Medical History Sinus congestion Fibromyalgia Screening for colon cancer History of renal calculi Right flank pain Back pain Chest discomfort SOB (shortness of breath) Plantar fasciitis Upper respiratory tract infection Adhesive capsulitis of right shoulder Myofascial pain on right side Rotator cuff impingement syndrome of right shoulder Family History Mother CVA (cerebral vascular accident) Maternal Aunt Breast cancer Maternal Uncle Lung cancer Social History Housing: House Alcohol intake: never Patient Tobacco Use Status: Never used Tobacco Tobacco use type: Cigarette e-Cigarette/Vaping Use: Never Used Second Hand Smoke Exposure: No service: No Current occupational status: employed 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 Current occupational exposures/hazards: No Cognitive needs: No Hearing needs: No Vision needs: Yes Questionnaire Thrive Questionnaire Date Thrive assessed: 03/28/25 I am a: Patient What is your living situation today?: I have a steady place to live Within the past 12 months, did the food you bought not last and you didn't have the money to get more?: Never true Within the past 12 months, did you worry whether your food would run out before you got money to buy more?: Never true Do you have trouble paying for medicines?: No Do you have trouble getting transportation to medical appointments?: No Do you have trouble paying your heating and electricity bill?: No Do you have trouble taking care of your child, family member or friend?: No Do you have trouble with day-to-day activities such as bathing, preparing meals, shopping, managing finances, etc.?: No Are you currently unemployed and looking for a job?: No Are you interested in more education?: No Please select the resources that you would like help with: None Currently or been in a relationship where the following occur: No concerns reported THRIVE Score: 0 PADMINI-7 AMB Questionnaire PADMINI-7 Date PADMINI - 7 assessed: 03/28/25 Source: Developed by Drs. Yaya Rojas, Karie Ortega, Willi Pedersen and colleagues, with an educational cindy from [employer]. Review of Systems Const Details: As per HPI. Physical exam (Primary Care) Vital Signs: Last Vital Signs Temp 98.4 F 07/26/25 14:05 Pulse 96 07/26/25 14:05 Resp 18 07/26/25 14:05 BP 130/68 07/26/25 14:05 Pulse Ox 99 07/26/25 14:05 Oxygen Delivery Method Room Air 07/26/25 14:05 BMI result Body Mass Index 22.5 Tobacco/Smoking Status: Tobacco use Status Tobacco use date assessed 03/28/25 07/26/25 14:10 Patient Tobacco Use Status Never used Tobacco 07/26/25 14:10 Tobacco use type Cigarette 07/26/25 14:10 e-Cigarette/Vaping Use Never Used 07/26/25 14:10 Thrive Assessment: Date of Thrive Assessment Date Thrive assessed 03/28/25 07/26/25 14:10 Currently or been in a relationship where the following occur: No concerns reported Const Other: Pertinent findings are in BOLD GENERAL APPEARANCE NAD, activity normal for age, well developed/ well nourished, no cyanosis, pallor, or diaphoresis. EYES lids/conjunctiva normal. EARS/NOSE/THROAT Mucous membranes moist, nares normal, lips/teeth normal uvula midline without oral pharyngeal erythema, exudate or swelling TMs normal bilaterally. No lymphangitis/lymphedema. HEAD/NECK normocephalic atraumatic, no facial trauma, neck is supple. RESPIRATORY respiratory effort normal, speaks in full sentences, no tripod position, no accessory muscle use. Lungs clear to auscultation without rhonchi, wheezes, rales CARDIAC Regular rate and rhythm, no edema. ABDOMINAL Soft, ND/NT. No evidence of fluid wave. No pulsatile masses on exam, rebound tenderness, Corado sign or pain over Mcburney's point. MUSCLES/EXTREMITIES No abnormal range of motion, no swelling. SKIN Warm, pink and dry. No rashes, dermatoses, petechiae or lesions. NEUROLOGICAL Speech is clear and appropriate. Normal level of consciousness. Gait and coordination are normal. 5/5 strength in all extremities. PSYCH Normal mood and affect. Judgement/competence is appropriate Coding Level of Care Code Est Pt Level 3 (36433) Diagnoses Chronic sinusitis J32.9 Time Spent (min) 20 Assessment & Plan Assessment & Plan (1) Chronic sinusitis: Code(s): J32.9 - Chronic sinusitis, unspecified Category: Medical Plan: - The patient presents with a chronic, bothersome sinus condition, with recent worsening of symptoms including pressure, pain, and new-onset pain with hot liquids. - Recent sinus imaging showed poor pneumatization of frontal sinuses. - After discussing treatment history and medication intolerances, including dizziness with amoxicillin and her reluctance to try doxycycline, a decision was made to prescribe azithromycin (Z-Zack) 500 mg daily for five days. - Advised on the importance of using Flonase nasal spray continuously, as this is a cornerstone of therapy. The patient will consider using it as she recently self stopped it. - A new referral to an ENT specialist was placed. - The patient was advised to check with her new insurance carrier regarding in-network ENTs and to keep any scheduled appointment. Plan I discussed with the patient her worsening symptoms of chronic sinusitis, including the new symptom of pain with hot liquids. I explained that her sinus X-ray finding of poor pneumatization means her frontal sinuses are not well-aerated, which contributes to her symptoms. We reviewed her medication history, including her intolerance to steroids and the dizziness she experienced with amoxicillin. We decided to prescribe a 5-day course of azithromycin (Z-Zack) 500mg, as she has tolerated it in the past without the steroids that were likely causing muscle symptoms. I emphasized that continuous use of Flonase is critical for managing her condition, as this would be the recommendation from an ENT specialist as well. I placed a new referral to an ENT specialist and advised her to coordinate with her new insurance to find a covered provider. I reassured her that while specialist follow-up is important, her condition is not an emergency, and the current plan is an appropriate first step. Orders: Referrals Ear/Nose/Throat Referral J32.9 - Chronic sinusitis, unspecified Medications: New azithromycin 500 mg PO DAILY 5 tabs 0RF 5 days
[2025-07-26 14:05] VITALS: BP 130/68; PULSE 96; RESP 18; TEMP 36.9; O2SAT 99; BMI 22.5
--- OUTSIDE RECORDS SUMMARY | 2025-07-26 18:39 | XMS_ITS | Patient Health Record ---
Author [facility] Address [address] [place] [address] Care Team Providers Care Oracle Database Developer Name Role Phone FranYarathaddeus Primary Care Provider Cr Palacios Unavailable [phone] Allergies Allergen (clinical drug ingredient) Drug/Non Drug Allergy documented on EMR Reaction Allergy Type Onset Date Status amoxicillin Amoxicillin Unknown Drug Allergy Act mary jo clindamycin Clindamycin HCl vomiting, diareah, stomach pain Drug Allergy Active Reason For Referral No Information Medications Medication SIG (Take, Route, Frequency, Duration) Notes Start Date End Date Status Voltaren 1 % as directed Externally Active Diclofenac Sodium 50 MG 1 tablet Orally Twice a day; Duration: 30 day(s) 11/08/2020 Active Feldene 20 MG 1 capsule with food Orally Once a day; Duration: 30 day(s) 05/03/2020 Not-Taking Aspirin PRN Not-Taking Norethindrone-Eth Estradiol 0.5-2.5 MG-MCG 1 tablet Orally Once a day; Duration: 30 day(s) Active ibuprofen Active Physical Therapy . . . 2-3x/week; Durat ion: 3-4 weeks 07/12/2020 Active Advil PRN Active Immunizations Vaccine Route Administration Date Status Comme nts Influenza Unknown 05/12/2025 Administered Social History Tobacco Use: Social History Observation Description Date Details (start date - stop date) Never Smoker NA - NA Tobacco use other than smoking: Question Answer Notes Are you an other tobacco user? No Tobacco Control (Standard) Question Answer Notes Tobacco use: Nonsmoker Additional Findings: Tobacco non-user Current no nsmoker AUDIT-C (Standard) Question Answer Notes Did you have a drink containing alcohol in the p ast year? No Points 0 Interpretation Negative Problems Problem Type SNOMED Code ICD Code Onset Dates Problem Status W/U Status Risk Notes Problem Onychomycosis (925979062) Onychomycosis (B35.1) Active confirmed Vital Signs Blood pressure diastolic 65 mm Hg 07/14/2025 Height 5 ft 8 in in 07/14/2025 Blood pressure systolic 115 mm Hg 07/14/2025 Weight 140 lbs 07/14/2025 BMI 21.28 kg/m2 07/14/2025 Encounters Encounter Location Date [facility] [address] [place] [address] 07/14/2025 Cr Oneil Pain in right toe(s) M79.674 ; Onychomycosis B35.1 and Pain in left toe(s) M79.675 [facility] [address] [place] [address] 05/02/2025 [facility] [address] [facility] [address] [place] [address] 05/24/2025 Cr Oneil Assessments Encounter Date Diagnosis (ICD Code) Assessment Notes Treatment Notes Treatment Clinical Notes Section Notes 07/14/2025 Pain in right toe(s) (ICD-10 - M79.674) 07/14/2025 Onychomycosis (ICD-10 - B35.1) 07/14/2025 Pain in left toe(s) (ICD-10 - M79.675) Plan Of Treatment Pending Test Test Name Order Date MRI : Ankle, left 09/20/2020 Nail Panel 05/03/2020 Next Appt Details Provider Name:Cr Nancy RamosThad , 07/13/2026 11:00:00 AM, [address] [place], [address], Insurance Providers Payer Name Payer Address Payer Phone Subscriber Number Group Number Insured Name Patient Relationship to Insured Coverage Start Date Coverage End Date [facility] [address] [place], [place] [id number] Eloisa Garcia Self - patient is the insured Medical (General) History Medical History History ICD Code Fibromyalgia Measles Chicken pox knee injury Surgical History Surgery Date(Month/Year)
== END 2025-07-26 14:38 | disposition home or self-care (01) ==
LOC: HO.HMCH 14:01
PROVIDERS: PCP Internal Medicine; Visit Provider Internal Medicine
DX: J32.9 Chronic sinusitis, unspecified (principal)